=== PATIENT | male | born 1970 | race Caucasian/White ===

== ENCOUNTER 2017-04-30 13:27 | Inpatient (IN) | payer OTHER ==
[~2017-04-30] VITALS: Ht 167.6 cm; Wt 56.7 kg
[2017-04-30] MEDS ORDERED: ACETAMINOPHEN 325 MG TABLET/CAPLET (TYLENOL) PO PRN (14:15)
[2017-04-30] MEDS ORDERED: LORazepam 0.5 MG (ATIVAN) TABLET PO PRN (14:15)
--- NOTE | 2017-04-30 15:21 | Physical Therapy Evaluation ---
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 Pain Numeric Pain Scale: 0-No Pain Location: No Pain Reported Objective Patient Orientation: Normal For Age Problem Solving: Good ROM/Strength ROM Lower Extremities bilateral LE WNL Strenght Lower Extremities right knee flexion/extension 5/5; hip flexion 5/5; ankle DF/PF 5/5 left knee flexion/extension 2/5; hip flexion 2/5; ankle DF/PF 1/5 Integumentary/Posture Integumentary refer to nursing notes Bowel Incontinence: No Bladder Incontinence: No Posture WNL; left lean Neuromuscular (Tone, Coordination, Reflexes) left UE/LE diminished tone and coordination right LE WFL/grossly intact Sensory Vision: Functional Hearing: Functional Sensation Right Lower Extremit: Intact Sensation Left Lower Extremity: Intact Transfers Functional [place] Measure 0=Not Assessed/NA 4=Minimal Assistance 1=Total Assistance 5=Supervision or Setup 2=Maximal Assistance 6=Modified [place] 3=Moderate Assistance 7=Complete IndependenceIRFPAI Quality Coding Scale 6 Independent with activity with or without an assistive device 5 Patient requires set up or clean up by helper. Patient completes activity by themselves 4 Supervision or touching assist (CGA). [place] provide cues , steadying assist 3 The helper provides less than half the effort to complete the activity 2 The helper provides more than half the effort to complete the activity 1 Dependent. The helper does all the effort to complete an activity 7 Patient refused to complete or attempt activity 9 The patient did not perform the activity before the current illness or injury 88 Not attempted due to Medical conditions or safety concerns Transfers (B, C, W/C) (FIM): 4 Scootin Rollin Roll Left to Right (QC): 6 Supine to/from Sit: 5 Sit to/from Stand: 4 Sit to Lying (QC): 5 Lying to Sitting/Side of Bed(Q: 5 Sit to Stand (QC): 4 Chair/Bwq-ws-Vvspq Xfer(QC): 4 Gait Does the Patient Walk?: Yes Mode of Locomotion: Walk Anticipated Mode of Locomotion: Walk Gait (FIM): 4 Distance (FIM): 1=up to 49 ft Walk 10 feet (QC): 4 Walk 50 ft with 2 Turns(QC): 4 Walking 10ft/uneven surface-QC: 4 Distance: 25' x 2 Gait Level of Assist: 4 Gait Persons Needed: 1 Gait Assistive Device: Walker Nav Comments/Gait Description step to gait sequence with left LE lag Stairs Stairs (FIM): 2 #of Steps: 2 Level of Assist: 4 1 Step (curb) (QC): 4 4 Steps (QC): 88 12 Steps (QC): 88 Balance Sitting Static: Normal Sitting Dynamic: Normal Standing Static: Fair Standing Dynamic: Fair Assessment/Needs 46 y.o. male, will benefit from skilled PT to address functional strength and mobility to improve current LOF and to safely return to home at maximum LOF. Patient is limited due to left hemiparesis. Rehab Potential: Good PT Block Chopper Hand Goals Block Chopper Hand Goals PT Block Chopper Hand Goals Time Frame: May 21, 2017 Transfers (B,C,W/C) (FIM): 6 Sit to Lying (QC): 6 Lying-Sitting on Side/Bed(QC): 6 Sit to Stand (QC): 6 Rollin Roll Left to Right (QC): 6 Chair/Rti-uj-Dtazp Xfer(QC): 6 Car Transfer (QC): 6 Does the Patient Walk: Yes Gait (FIM): 6 Gait distance (FIM): 3=150 ft Distance: 250' Walk 10 feet (QC): 6 Walk 10ft-Uneven Surface(QC): 6 Walk 50ft with 2 Turns (QC): 6 Walk 150 ft (QC): 6 Gait Level of Assist: 6 Gait Assistive Device: Cane Single Point, Walker Nav Does the Pt use WC or Scooter?: No Stairs (FIM): 5 # of Steps: 12 1 Step (curb) (QC): 5 4 Steps (QC): 5 12 Steps (QC): 5 Stairs Level Of Assist: 5 Picking up an Object (QC): 5 PT Plan Problem List Problem List: Functional Strength, Safety, Balance, Gait Treatment/Plan Treatment Plan: Continue Plan of Care Treatment Plan: Bed Mobility, Education, Functional Activity Av, Functional Strength, Group Therapy, Gait, Safety, Therapeutic Exercise, Transfers Treatment Duration: May 21, 2017 Frequency: At least 5 of 7 days/Wk (IRF) Estimated Hrs Per Day: 1.5 hours per day Patient and/or Family Agrees t: Yes Safety Risks/Education Patient Education: Gait Training, Safety Issues Teaching Recipient: Patient, Significant Other Teaching Methods: Demonstration, Discussion Response to Teaching: Verbalize Understanding, Return Demonstration Discharge Recommendations Therapy D/C Recommendations: Home w/ Family Support, Physical Therapy Outpatient Time/GCodes Time In: 1526 Time Out: 1546 Total Billed Treatment Time: 20 Total Billed Treatment 1 visit EVModC 20 min NICOLA CHOI PT Apr 30, 2017 15:21
[2017-04-30 15:30] VITALS: BP 112/75
--- NOTE | 2017-04-30 15:40 | PM&R Post Admission Assessment ---
Post Admission Physician Asses The preadmission screen agrees with the post admission assessment that the patient is a good candidate for inpatient rehabilitation. The patient will have a comprehensive program of inpatient rehabilitation with a goal of maximizing level of functional independence prior to discharge home with spouse. The patient will have PT/OT ninety minutes per day, each discipline, five days a week for gait, strengthening, conditioning, balance, ADLs, any patient/family/caregiver training as necessary. Speech therapy to do cognitive assessment and treat as indicated. Rehabilitation nursing to assist with bowel, bladder, skin,care medication administration, pain management. Audit Analyst to assist with discharge planning, community reentry. SCD's for DVT prophylaxis. He appears to be well motivated to participate in three hours of therapy a day. He should be able to tolerate three hours of therapy a day from a medical standpoint. He should benefit from the three hours of therapy a day. He has a reasonable discharge plan, reasonable discharge rehabilitation goals and a supportive family. He has various comorbidities that need to be closely monitored with medications and treatments adjusted on a daily basis as needed. These include: ETOH abuse Hypothyroidism [place] Barriers to discharge for this patient who had been independent prior to this are for him to be modified independent to supervision for ADLs and mobility skills prior to discharge home with spouse, so as to lessen the burden of the caregivers. Risks for this patient include: 1. Fall 2. Fracture 3. DVT 4. Pulmonary embolism 5. ETOH withdrawal 6. Skin breakdown 7. Contractures 8. Poorly controlled pain 9. Urinary retention 10. UTI 11. Respiratory infection 12. Aspiration 13 Anxiety /depression related to above Estimated Length of Stay: 17 days Prognosis: Rehab prognosis appears good for goal of discharge home with spouse modified independent to supervision for ADLs and mobility skills. DESMOND FAM MD Apr 30, 2017 15:40
--- NOTE | 2017-04-30 15:41 | Occupational Therapy Eval ---
OT Evaluation-General/PLF Medical Diagnosis Admission Date April 30, 2017 Medical Diagnosis: CVA Onset Date: Apr 24, 2017 Therapy Diagnosis Therapy Diagnosis: Impaired self care skills Precautions Precautions/Isolations: Fall Prevention, Standard Precautions, Pressure Ulcer Referral Physician: Jose Antonio Medical History Additional Medical History Neck cancer, left hand surgery, alcoholism Current History CVA with left side weakness Reviewed History: Yes Social History Home: Multilevel (stay on main level) Current Living Status: Spouse Entry Into Home: Stairs With Railing Steps Into Home: 4 ADL-Prior Level of Function ADL PLOF Comments Pt reports being independent with all ADLs and mobility. 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 Pt has no c/o pain. Mental Status/Objective Patient Orientation: Person, Place, Situation Current Glasses/Contacts: No Hearing Aids: No Dentures/Partials: No Hand Dominance: Right Upper Extremity ROM Right UE WFL Left UE- active shoulder ROM to 90 degrees. decreased internal/external rotation. Elbow, wrist, and hand grossly functional Upper Extremity Coordination Right UE WFL Left UE diminished Upper Extremity Sensation Pt reports numbness in left UE, worst in hand. Intact to light touch Upper Extremity Strength Right UE WFL Left UE proximally grossly 2+/5, distally grossly 3/5 ADL-Treatment ADL-Current Pt supine to sit with supervision. Pt demonstrates ability to doff/don socks with SBA while seated EOB. Sit to stand with minimal assistance. Gait to restroom with ellie-walker with minimal assistance for balance. Pt stood at toilet to urinate with minimal assistance for balance and safety. Pt requires cues for safety during mobility tasks. Pt sitting EOB with PT and spouse present after session. Functional [place] Measure 0=Not Assessed/NA 4=Minimal Assistance 1=Total Assistance 5=Supervision or Setup 2=Maximal Assistance 6=Modified [place] 3=Moderate Assistance 7=Complete IndependenceIRFPAI Quality Coding Scale 6 Independent with activity with or without an assistive device 5 Patient requires set up or clean up by helper. Patient completes activity by themselves 4 Supervision or touching assist (CGA). [place] provide cues , steadying assist 3 The helper provides less than half the effort to complete the activity 2 The helper provides more than half the effort to complete the activity 1 Dependent. The helper does all the effort to complete an activity 7 Patient refused to complete or attempt activity 9 The patient did not perform the activity before the current illness or injury 88 Not attempted due to Medical conditions or safety concerns On/Off Footwear (QC): 4 (supervision) Toileting (FIM): 4 Toileting Hygiene (QC): 3 Education OT Patient Education: Rehab process Teaching Recipient: Patient, Family Teaching Methods: Discussion Response to Teaching: Verbalize Understanding OT Short Term Goals Short Term Goals Time Frame: May 07, 2017 Lower Body Dressing(FIM): 5 Toileting(FIM): 5 Toilet/Commode Transfer(FIM): 5 Additional Short Term Goals: 1-Demonstrate ADL Tasks, 2-Verbalize Understanding , 3-ImproveStrength/Av 1=Demonstrate adherence to instructed precautions during ADL tasks. 2=Patient will verbalize/demonstrate understanding of assistive devices/ modifications for ADL. 3=Patient will improve strength/tolerance for activity to enable patient to perform ADL's. OT Nursing Home Goals It Support Specialist Goals Time Frame: May 21, 2017 Eating (FIM): 6 Eating (QC): 6 Groomin Oral Hygiene (QC): 6 Bathing(FIM): 5 Shower/Bathe Self (QC): 5 Upper Body Dressing(FIM): 6 Upper Body Dressing (QC): 6 Lower Body Dressing(FIM): 6 Lower Body Dressing (QC): 6 On/Off Footwear (QC): 6 Toileting(FIM): 6 Toileting Hygiene (QC): 6 Toilet/Commode Transfer(FIM): 6 Toilet/Commode Transfer (QC): 6 Shower Transfer(FIM): 5 Additional Goals: 1-Demonstrate ADL Tasks, 2-Verbalize Understanding, 3- ImproveStrength/Av 1=Demonstrate adherence to instructed precautions during ADL tasks. 2=Patient will verbalize/demonstrate understanding of assistive devices/ modifications for ADL. 3=Patient will improve strength/tolerance for activity to enable patient to perform ADL's. Goals established to promote increased independence and safety and allow safe discharge home with spouse. OT Education/Plan Problem List/Assessment Assessment: Decreased Safety Aware, Decreased UE Strength, Dependent Transfers , Impaired Coordination, Impaired Funct Balance, Impaired I ADL's, Impaired Self -Care Skills Pt admitted to ARU following acute hospitalization for CVA. Pt demonstrates decreased strength and coordination on left side and decreased ADL functioning, and mobility. Pt to benefit from skilled OT intervention for ADL training, transfers, strengthening, coordination, and home safety education to maximize level of independence and allow safe discharge home. Discharge Recommendations Plan/Recommendations: Continue POC Treatment Plan/Plan of Care Treatment,Training & Education: Yes Patient would benefit from OT for education, treatment and training to promote independence in ADL's, mobility, safety and/or upper extremity function for ADL' s. Plan of Care: ADL Retraining, Functional Mobility, Group Exercise/Act as Ind, UE Funct Exercise/Act, UE Neuromus Re-Ed/Coord Treatment Duration: May 21, 2017 Frequency: At least 5 of 7 days/Wk (IRF) Estimated Hrs Per Day: 1.5 hours per day Agreement: Yes Rehab Potential: Good Time/GCodes Start Time: 15:10 Stop Time: 15:25 Total Time Billed (hr/min): 15 Billed Treatment Time 1 visit, EVM(15minutes) MAYRA CRUZ OT Apr 30, 2017 15:41
[2017-04-30 17:00] VITALS: BP 112/75
[2017-04-30] MEDS: CARVEDILOL 3.125 MG (COREG) TABLET PO SCH (20:23)
[2017-04-30] MEDS: ATORVASTATIN 40 MG (LIPITOR) TABLET PO SCH (20:23)
--- NOTE | 2017-05-01 01:43 | HISTORY AND PHYSICAL ---
DATE OF SERVICE: CHIEF COMPLAINT: Difficulty with walking. HISTORY OF PRESENT ILLNESS: The patient is a 46-year-old male who is admitted to OSH with complaints of left-sided weakness and incontinence of urine. His brought him to ED. CT scan revealed infarct involving the right middle cerebral artery distribution and right basal ganglia with resulting left hemiparesis. The patient was placed on Lipitor. The patient was also started on levothyroxine for hypothyroidism and Ativan p.r.n. as he has a history of ethanol abuse and tobaccoism. Therapies were begun for the patient. The patient was found to be appropriate for inpatient rehabilitation unit and he was referred to inpatient rehabilitation unit at [facility] with his insurance is approval. He lives with his in the [place], [place] and has worked as a [employer] and had been independent. Currently, he requires assistance for his ADLs and mobility skills, has significant left hemiparesis. He is right hand dominant. He is min assist for transfers, min assist for ambulation with a ellie walker, min assist with bed mobility. He is set up for feeding, min assist for grooming, mod assist for upper body dressing and lower body dressing and toileting and bathing. He is reported to be continent of bowel and bladder. PAST MEDICAL HISTORY: Tobaccoism, ethanol abuse. PAST SURGICAL HISTORY: Left hand surgery, lymph node resection from his throat with history of neck cancer treated with radiation therapy and chemotherapy at [facility]. ALLERGIES: No known medication allergy. FAMILY HISTORY: Heart disease, uncle and grandfather. SOCIAL HISTORY: Drinks three alcoholic beverages daily, smoked 20 cigarettes a day. Denies any substance abuse. REVIEW OF SYSTEMS: A 12-point review of systems significant for left-sided weakness. MEDICATIONS: Tylenol 325 mg 2 tablets p.o. q. 4 h. as needed for pain, Lortab 325/5 one tablet p.o. q. 6 h. as needed for moderate pain, Lipitor 40 mg p.o. daily, Coreg 3.25 mg p.o. b.i.d., Flexeril 10 mg one-half tablet p.o. t.i.d. p.r.n. muscle spasm, furosemide 20 mg p.o. daily, levothyroxine 100 mcg p.o. daily, lorazepam 0.5 mg p.o. q. 6 h. as needed for anxiety. PHYSICAL EXAMINATION: GENERAL: Significant for a male appearing in his stated age, alert and oriented, sitting on the side of the bed in no acute distress. VITAL SIGNS: Within normal limits. He is afebrile. HEENT: Vision, speech, hearing appear grossly intact. No oral lesion is noted. NECK: Supple without mass. HEART: Regular rhythm. LUNGS: Clear. ABDOMEN: Soft, nontender. EXTREMITIES: No leg edema, no calf tenderness. MUSCULOSKELETAL: He has functional passive range of motion of all 4 extremities. NEUROLOGIC: Cognition appears grossly intact. Speech and swallow grossly intact. Sensation grossly intact to touch. He has left-sided weakness with strength of left lower extremity 2/5 other than ankle which is 1/5, strength in the right lower extremity 5/5, strength of right upper limb 5/5. 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 Strength generally 2 to 2+/5. Has diminished tone and coordination on the left. IMPRESSION: 1. Right middle cerebral artery distribution ischemic stroke with left hemiparesis, now on statin. 2. Hypothyroidism, on replacement. 3. Tobaccoism, currently abstaining. 4. Ethanol abuse, currently abstaining. 4. Reactive anxiety, on medication p.r.n. PLAN: The patient will have a comprehensive program of inpatient stroke rehabilitation with goal of maximizing level of functional independence prior to discharge home with spouse. The patient will have PT, OT 90 minutes per day each discipline, 5 days a week for 2 weeks for gait strengthening and conditioning, balance, ADLs, any patient family caregiver training necessary adaptive equipment and training necessary. Speech therapy to do cognitive speech screen. Treat as indicated. Rehabilitation nursing to assist with bowel, bladder skin care, medication administration, pain management. surgical services asst for discharge planning, community reentry. Ask Dr. Culver to follow this [facility] patient with me for any medical concerns. We will clarify the patient's need for the Coreg and pain medication p.r.n. after further review of records and patient's interview. Routine admission labs. ESTIMATED LENGTH OF STAY: 2 weeks. PROGNOSIS: Rehab prognosis appears good for goal of discharging home with spouse, modified independent to supervision for ADLs and mobility skills. The patient's spouse presents with the patient upon admission. DIET: Heart healthy, regular consistency, solids and liquids, no straws. CODE STATUS: Full code. Job ID: [id number] DocumentID: [id number] Dictated Date: 04/30/2017 15:49:56 Power Distribution Engineer Date: 04/30/2017 17:16:31 Dictated By: DESMOND FAM MD [facility]PITALCristobal
[2017-05-01 06:00] VITALS: BP 118/80
[2017-05-01] MEDS: HYDROcodone/APAP 5 MG/325 MG (LORTAB) TAB PO PRN ×3 (06:15→20:37)
[2017-05-01] MEDS: LEVOTHYROXINE 100 MCG (LEVOTHROID) TAB PO SCH (06:15)
[2017-05-01 06:19] LABS: BASOPHILS % (AUTO) 0 % (0-10); EOSINOPHILS # (AUTO) 0.2 10^3/uL (0.0-0.3); EOSINOPHILS % (AUTO) 2 % (0-10); LYMPHOCYTES # (AUTO) 1.2 X 10^3 (1.0-4.0); LYMPHOCYTES % (AUTO) 13 % (12-44); MEAN CORPUSCULAR HEMOGLOBIN 32 PG (25-34); MEAN CORPUSCULAR HGB CONC 35 G/DL (32-36); MEAN CORPUSCULAR VOLUME 90 FL (80-99); MEAN PLATELET VOLUME 10.9 FL (7.4-10.4); MONOCYTES % (AUTO) 10 % (0-12); NEUTROPHILS # (AUTO) 7.2 X 10^3 (1.8-7.8); NEUTROPHILS % (AUTO) 75 % (42-75); PLATELET COUNT 252 10^3/uL (130-400); RED BLOOD COUNT 4.99 10^6/uL (4.35-5.85); RED CELL DISTRIBUTION WIDTH 12.4 % (10.0-14.5); WHITE BLOOD COUNT 9.6 10^3/uL (4.3-11.0)
[2017-05-01 06:52] LABS: ALANINE AMINOTRANSFERASE 37 U/L (0-55); ALBUMIN 3.6 GM/DL (3.2-4.5); ANION GAP 10 MMOL/L (5-14); ASPARTATE AMINO TRANSFERASE 28 U/L (5-34); BILIRUBIN,TOTAL 0.8 MG/DL (0.1-1.0); BLOOD UREA NITROGEN 14 MG/DL (7-18); BUN/CREATININE RATIO 17; CALCIUM 8.9 MG/DL (8.5-10.1); CARBON DIOXIDE 23 MMOL/L (21-32); CHLORIDE 103 MMOL/L (98-107); CREATININE SERUM 0.83 MG/DL (0.60-1.30); GFR ESTIMATED > 60; GLUCOSE 99 MG/DL (70-105); POTASSIUM 4.2 MMOL/L (3.6-5.0); SODIUM 136 MMOL/L (135-145); TOTAL PROTEIN 6.3 GM/DL (6.4-8.2)
[2017-05-01] MEDS: FUROSEMIDE 20 MG (LASIX) TAB PO SCH (09:32)
[2017-05-01] MEDS: CARVEDILOL 3.125 MG (COREG) TABLET PO SCH ×2 (09:32→20:37)
--- NOTE | 2017-05-01 09:53 | Physical Therapy Daily Note ---
PT Daily Note-Current Subjective Patient just complete breakfast and agrees to PT. Pain Numeric Pain Scale: 0-No Pain Location: No Pain Reported Mental Status Patient Orientation: Normal For Age Transfers Functional [place] Measure 0=Not Assessed/NA 4=Minimal Assistance 1=Total Assistance 5=Supervision or Setup 2=Maximal Assistance 6=Modified [place] 3=Moderate Assistance 7=Complete IndependenceIRFPAI Quality Coding Scale 6 Independent with activity with or without an assistive device 5 Patient requires set up or clean up by helper. Patient completes activity by themselves 4 Supervision or touching assist (CGA). [place] provide cues , steadying assist 3 The helper provides less than half the effort to complete the activity 2 The helper provides more than half the effort to complete the activity 1 Dependent. The helper does all the effort to complete an activity 7 Patient refused to complete or attempt activity 9 The patient did not perform the activity before the current illness or injury 88 Not attempted due to Medical conditions or safety concerns Transfers (B, C, W/C) (FIM): 4 Scootin Rollin Roll Left to Right (QC): 5 Supine to/from Sit: 5 Sit to/from Stand: 4 Sit to Lying (QC): 5 Sit to Stand (QC): 4 Chair/Hin-pi-Virdq Xfer(QC): 4 Bed to/from Chair: 4 Car Transfer (QC): 5 close CGA to SBA with sit to stand transfers and pivot turns Weight Bearing Right Lower Extremity: Right Full Weight Bearing Left Lower Extremity: Left Full Weight Bearing Gait Training Does the Patient Walk?: Yes Gait (FIM): 4 Distance (FIM): 3=150 ft Distance: 150' x 2 Walk 10 feet (QC): 4 Walk 50 ft with 2 Turns(QC): 4 Walk 150 ft (QC): 4 Walking 10ft/uneven surface-QC: 4 Gait Level of Assist: 4 Gait Persons Needed: 1 Gait Assistive Device: Walker Nav cuing for left LE foot clearance due to left LE lag. Exercises Supine Ex: Ankle pumps, Quad Set, Heel Slides, Short Arc Quads, Straight leg raise, Hip abd/add Supine Reps: 20 (x 2 sets with 2# wt. bilaterally) Seated Therapy Exercises: Long arc quads, Hip flexion Seated Reps: 20 (x 2 sets with 2# wt. bilaterally) Standing: Hip Abduction, Hamstring curls, Mini squats Standing Reps: 20 (2 sets with 2# wt bilaterally) NuStep Minutes: 15 NuStep Workload: 4 (to improve reciprocal pattern with gait training and to improve functional strength) Assessment Patient is progressing with treatment plan. Patient has been instructed to call for assistance due to impulsive behavior with transfers and ambulation. Patient voices understanding. PT to increase activity as tolerated by patient. PT Pediatrician Goals Pediatrician Goals PT Fdc Goals Time Frame: May 21, 2017 Transfers (B,C,W/C) (FIM): 6 Sit to Lying (QC): 6 Lying-Sitting on Side/Bed(QC): 6 Sit to Stand (QC): 6 Rollin Roll Left to Right (QC): 6 Chair/Orv-aw-Mmarh Xfer(QC): 6 Car Transfer (QC): 6 Does the Patient Walk: Yes Gait (FIM): 6 Gait distance (FIM): 3=150 ft Distance: 250' Walk 10 feet (QC): 6 Walk 10ft-Uneven Surface(QC): 6 Walk 50ft with 2 Turns (QC): 6 Walk 150 ft (QC): 6 Gait Level of Assist: 6 Gait Assistive Device: Cane Single Point, Walker Nav Does the Pt use WC or Scooter?: No Stairs (FIM): 5 # of Steps: 12 1 Step (curb) (QC): 5 4 Steps (QC): 5 12 Steps (QC): 5 Stairs Level Of Assist: 5 Picking up an Object (QC): 5 PT Plan Treatment/Plan Treatment Plan: Continue Plan of Care Treatment Plan: Bed Mobility, Education, Functional Activity Av, Functional Strength, Group Therapy, Gait, Safety, Therapeutic Exercise, Transfers Treatment Duration: May 21, 2017 Frequency: At least 5 of 7 days/Wk (IRF) Estimated Hrs Per Day: 1.5 hours per day Patient and/or Family Agrees t: Yes Safety Risks/Education Patient Education: Safety Issues Teaching Recipient: Patient Teaching Methods: Discussion Response to Teaching: Verbalize Understanding Discharge Recommendations Therapy D/C Recommendations: Home w/ Family Support, Physical Therapy Outpatient Time/GCodes Time In: 845 Time Out: 945 Total Billed Treatment Time: 60 Total Billed Treatment 1 visit EX x 3 50 min GT 10 min NICOLA CHOI PT May 01, 2017 09:53
--- NOTE | 2017-05-01 10:49 | Occupational Ther Daily Note ---
OT Current Status-Daily Note Subjective Pt seen in room, up in bed, agreeable to OT. No pain reported. Appearance Alert, cooperative, L sided neglect Mental Status/Objective Functional [place] Measure 0=Not Assessed/NA 4=Minimal Assistance 1=Total Assistance 5=Supervision or Setup 2=Maximal Assistance 6=Modified [place] 3=Moderate Assistance 7=Complete [place] ADL-Treatment Functional [place] Measure 0=Not Assessed/NA 4=Minimal Assistance 1=Total Assistance 5=Supervision or Setup 2=Maximal Assistance 6=Modified [place] 3=Moderate Assistance 7=Complete IndependenceIRFPAI Quality Coding Scale 6 Independent with activity with or without an assistive device 5 Patient requires set up or clean up by helper. Patient completes activity by themselves 4 Supervision or touching assist (CGA). [place] provide cues , steadying assist 3 The helper provides less than half the effort to complete the activity 2 The helper provides more than half the effort to complete the activity 1 Dependent. The helper does all the effort to complete an activity 7 Patient refused to complete or attempt activity 9 The patient did not perform the activity before the current illness or injury 88 Not attempted due to Medical conditions or safety concerns Eating (FIM): 5 (Per pt report. he was able to feed himself with his R hand but needed help to open packages and set up food. Pt shared his swallowing strategies) Eating (QC): 5 Grooming (FIM): 5 (Setup and supervision, seated at sink, to brush teeth and comb hair. Washed face and hands in shower. chooses not to shave today) Oral Hygiene (QC): 4 (supervision) Bathing (FIM): 4 (CGA when standing to wash bottom. Skilled cues and education to use L arm to wash and dry R arm. Skilled cues to place L hand on grab bar to use as support when standing. Washed and dried all parts with cues, education. Shower bench, grab bar, hand held shower) Shower/Bathe Self (QC): 4 Upper Body (FIM): 4 (min assist to don shirt, helping with L arm. Pt educ modified technique. Skilled cues when taking shirt off to take L arm out of sleeve due to neglect) Upper Body Dressing (QC): 3 Lower Body Dressing (FIM): 4 (CGA when standing to pull pants up. Skilled cues to pull pants up over L hip. Able to doff and don slipper socks with supervision. ) Lower Body Dressing (QC): 4 (CGA) On/Off Footwear (QC): 4 (supervision) Toileting (FIM): 4 (CGA for clothing management. Tall toilet, grab bar. Encouraged to use L hand on grab bar as assist for balance) Toileting Hygiene (QC): 4 Toilet/Commode Transfer (FIM): 4 (CGA on and off tall toilet, grab bar. Encouraged to use L arm as assist on grab bar) Shower Transfer(FIM): 4 (CGA getting on/off shower bench. grab bar) Pt educ modified techniques for ADLs. Pt educ on techniques to use to help increase functional use L UE, with focus on visual attention. Pt walked CGA, ellie walker to and from bathroom and did grooming in sitting. Skilled cues for sequencing to safely get to bathroom and back. pt left up in bed, 4 rails up, all needs met. Education OT Patient Education: Modified ADL techniques, Progress toward Goal/Update tx plan, Purpose of tx/functional activities, Rehab process, Safety issues, Transfer techniques Teaching Recipient: Patient Teaching Methods: Demonstration, Discussion Response to Teaching: Verbalize Understanding, Return Demonstration, Reinforcement Needed OT Short Term Goals Short Term Goals Time Frame: May 07, 2017 Lower Body Dressing(FIM): 5 Toileting(FIM): 5 Toilet/Commode Transfer(FIM): 5 Additional Short Term Goals: 1-Demonstrate ADL Tasks, 2-Verbalize Understanding , 3-ImproveStrength/Av 1=Demonstrate adherence to instructed precautions during ADL tasks. 2=Patient will verbalize/demonstrate understanding of assistive devices/ modifications for ADL. 3=Patient will improve strength/tolerance for activity to enable patient to perform ADL's. OT Supervisor Front Goals Supervisor Front Goals Time Frame: May 21, 2017 Eating (FIM): 6 Eating (QC): 6 Groomin Oral Hygiene (QC): 6 Bathing(FIM): 5 Shower/Bathe Self (QC): 5 Upper Body Dressing(FIM): 6 Upper Body Dressing (QC): 6 Lower Body Dressing(FIM): 6 Lower Body Dressing (QC): 6 On/Off Footwear (QC): 6 Toileting(FIM): 6 Toileting Hygiene (QC): 6 Toilet/Commode Transfer(FIM): 6 Toilet/Commode Transfer (QC): 6 Shower Transfer(FIM): 5 Additional Goals: 1-Demonstrate ADL Tasks, 2-Verbalize Understanding, 3- ImproveStrength/Av 1=Demonstrate adherence to instructed precautions during ADL tasks. 2=Patient will verbalize/demonstrate understanding of assistive devices/ modifications for ADL. 3=Patient will improve strength/tolerance for activity to enable patient to perform ADL's. OT Education/Plan Problem List/Assessment Pt admitted to ARU following acute hospitalization for CVA. Pt demonstrates decreased strength and coordination on left side and decreased ADL functioning, and mobility. Pt to benefit from skilled OT intervention for ADL training, transfers, strengthening, coordination, and home safety education to maximize level of independence and allow safe discharge home. Discharge Recommendations Plan/Recommendations: Continue POC Treatment Plan/Plan of Care Patient would benefit from OT for education, treatment and training to promote independence in ADL's, mobility, safety and/or upper extremity function for ADL' s. Plan of Care: ADL Retraining, Functional Mobility, Group Exercise/Act as Ind, UE Funct Exercise/Act, UE Neuromus Re-Ed/Coord Treatment Duration: May 21, 2017 Frequency: At least 5 of 7 days/Wk (IRF) Estimated Hrs Per Day: 1.5 hours per day Agreement: Yes Rehab Potential: Good Time/GCodes Start Time: 10:00 Stop Time: 10:38 Total Time Billed (hr/min): 38 Billed Treatment Time visit, ADL 38 minutes STEPHIE DUMAS OT May 01, 2017 10:49
[2017-05-01 14:36] VITALS: BP 100/63
[2017-05-01 18:10] VITALS: BP 110/75
[2017-05-01] MEDS: ATORVASTATIN 40 MG (LIPITOR) TABLET PO SCH (20:37)
[2017-05-02] MEDS: CYCLOBENZAPRINE 10 MG (FLEXERIL) TAB PO PRN ×2 (00:38→15:27)
[2017-05-02] MEDS: HYDROcodone/APAP 5 MG/325 MG (LORTAB) TAB PO PRN ×3 (00:38→17:52)
[2017-05-02 00:41] VITALS: BP 110/74
[2017-05-02] MEDS: LEVOTHYROXINE 100 MCG (LEVOTHROID) TAB PO SCH (05:45)
[2017-05-02 05:49] VITALS: BP 109/71
[2017-05-02] MEDS: CARVEDILOL 3.125 MG (COREG) TABLET PO SCH ×2 (09:11→20:04)
[2017-05-02] MEDS: FUROSEMIDE 20 MG (LASIX) TAB PO SCH (09:11)
[2017-05-02 09:12] VITALS: BP 102/65
[2017-05-02] MEDS ORDERED: ATOR40TA70 PO (16:57)
[2017-05-02] MEDS ORDERED: FURO20TA4 PO (16:57)
[2017-05-02] MEDS ORDERED: ACET325T49 PO (16:57)
[2017-05-02] MEDS ORDERED: CYCL10TA9 PC (16:57)
[2017-05-02] MEDS ORDERED: LEVO100T7 PO (16:57)
[2017-05-02] MEDS ORDERED: LORA0.5T PO (16:57)
[2017-05-02] MEDS ORDERED: HYDR-757 PO (16:57)
[2017-05-02] MEDS ORDERED: CARV3.122 PO (16:57)
[2017-05-02] MEDS ORDERED: MILK OF MAGNESIA 400 MG/5 ML 30 ML UDC PO PRN (17:00)
[2017-05-02 17:55] VITALS: BP 104/69
[2017-05-02] MEDS ORDERED: KETOROLAC 30 MG/ML VIAL IM PRN (18:15)
--- NOTE | 2017-05-02 19:22 | Diagnostic Imaging Report ---
PROCEDURE: CT head without contrast. TECHNIQUE: Multiple contiguous axial images were obtained through the brain without the use of intravenous contrast. INDICATION: Hemorrhagic stroke 10 days earlier. Now with severe headache. FINDINGS: There is a 2.6 x 2.3 cm acute area of hemorrhage in the right basal ganglia with surrounding vasogenic edema. Mild localized mass effect with slight effacement of right lateral ventricle. Trace right to left midline shift at approximately 2 mm. Additional areas of acute hemorrhage not suggested. Left cerebral hemisphere and posterior fossa appearing unremarkable. Basilar cisterns maintained. IMPRESSION: 1. Acute approximately 2.6 x 2.3 cm hemorrhagic infarct of the right basal ganglia surrounding the vasogenic edema. Mild localized mass effect with minimal right to left midline shift. (I currently have no prior studies for direct comparative purposes. By report, this may be increased in size from prior MRI of 04/26/2017). Findings have been telephoned to the inpatient rehabilitation department, patient's unit nurse at 7:10 PM. Dictated by: Dictated on workstation # [id number]
[2017-05-02] MEDS ORDERED: CYCLOBENZAPRINE 10 MG (FLEXERIL) TAB PO ONE (19:45)
[2017-05-02] MEDS ORDERED: HYDROcodone/APAP 5 MG/325 MG (LORTAB) TAB PO ONE (19:45)
[2017-05-02 19:58] VITALS: BP 104/66
[2017-05-02] MEDS: ATORVASTATIN 40 MG (LIPITOR) TABLET PO SCH (20:03)
[2017-05-02] MEDS ORDERED: DEXAMETHASONE 1 MG TAB (DECADRON) PO SCH (22:00)
[2017-05-02 23:39] VITALS: BP 94/59
[2017-05-03 04:00] VITALS: BP 95/62
[2017-05-03] MEDS ORDERED: DEXAMETHASONE 4 MG TAB (DECADRON) ONE (05:22)
[2017-05-03] MEDS: LEVOTHYROXINE 100 MCG (LEVOTHROID) TAB PO SCH (05:46)
[2017-05-03] MEDS ORDERED: DEXAMETHASONE 4 MG TAB (DECADRON) PO SCH (06:00)
[2017-05-03 08:03] VITALS: BP 107/71
--- NOTE | 2017-05-03 08:30 | Consultation ---
History of Present Illness History of Present Illness Patient Consulted On(mina/time) 05/03/17 08:25 Time Seen by Provider: 08:25 History of Present Illness patient said he had a stroke on his left side. Patient said due to bleed. Patient also was told he had a myocardial infarction. Patient has a history of drinking 12 beers a day. Patient smokes and uses marijuana. Patient has weakness of his left extremities. 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 No primary site noted Allergies and Home Medications Allergies Coded Allergies: No Known Drug Allergies (Unverified , 04/30/17) Home Medications Acetaminophen 325 Mg Tablet, 650 MG PO Q4H PRN for PAIN-MILD, (Reported) TAKES 2 (325 MG) TABLETS Atorvastatin Calcium 40 Mg Tablet, 40 MG PO HS, (Reported) Carvedilol 3.125 Mg Tablet, 3.125 MG PO BID, (Reported) Cyclobenzaprine HCl 10 Mg Tablet, 5 MG PC TID PRN for MUSCLE SPASMS, (Reported) TAKES 1/2 OF A (10 MG) TABLET Furosemide 20 Mg Tablet, 20 MG PO DAILY, (Reported) Hydrocodone/Acetaminophen 1 Each Tablet, 1 TAB PO Q6H PRN for PAIN-MODERATE, ( Reported) Levothyroxine Sodium 100 Mcg Tablet, 100 MCG PO DAILY, (Reported) Lorazepam 0.5 Mg Tablet, 0.5 MG PO Q6H PRN for ANXIETY, (Reported) Past Nofkxkb-Piqufg-Rvvhdk Hx Patient Social History Alcohol Use: Regular Use Alcohol Beverage of Choice: Beer Recreational Drug Use: Yes Drug of Choice: marjuana Smoking Status: Former Smoker Type Used: Cigarettes Former Smoker, Quit: Mar 24, 2017 Recent Foreign Travel: No Contact w/Someone Who Travel: No Recent Infectious Disease Expo: No Recent Hopitalizations: Yes Seasonal Allergies Seasonal Allergies: No Surgeries History of Surgeries: Yes (hand) Respiratory History of Respiratory Disorde: Yes Respiratory Disorders: COPD Currently Using CPAP: No Currently Using BIPAP: No Cardiovascular History of Cardiac Disorders: Yes Neurological History of Neurological Disord: Yes Genitourinary History of Genitourinary Disor: No Gastrointestinal History of Gastrointestinal Di: No Musculoskeletal History of Musculoskeletal Dis: Yes (left hand surgery) Endocrine History of Endocrine Disorders: Yes HEENT History of HEENT Disorders: No Loss of Vision: Denies Hearing Impairment: Denies Cancer History of Cancer: Yes (neck ca-radiation and chemo) Did You Recieve Any Treatments: Yes Type of Tx Receive: Chemotherapy, Radiation Psychosocial History of Psychiatric Problem: Yes Behavioral Health Disorders: Anxiety Integumentary History of Skin or Integumenta: No Blood Transfusions History of Blood Disorders: No Adverse Reaction to a Blood Tr: No Family Medical History Family Medial History: Cardiovascular disease 19 FATHER (50) Review of Systems-General Constitutional: weakness EENTM: no symptoms reported Respiratory: no symptoms reported Cardiovascular: other (yocardial infarction) Gastrointestinal: no symptoms reported Genitourinary: no symptoms reported Physical Exam-General Problems Physical Exam Vital Signs Vital Sign - Last 12Hours 04/30/17 04/30/17 16:00 17:00 Temp 98.3 Pulse 66 Resp 20 B/P (MAP) 112/75 Pulse Ox 100 O2 Delivery Room Air Capillary Refill : General Appearance: no apparent distress, thin Eyes: Bilateral Eye Normal Inspection HEENT: normal ENT inspection Neck: non-tender Respiratory: chest non-tender, no respiratory distress, no accessory muscle use Cardiovascular: regular rate, rhythm Gastrointestinal: non tender, soft Assessment/Plan Assessment/Plan Admission Diagnosis/Plan CVA on left. Acute [place]. tobaccoism. Alcoholism. Clinical Quality Measures DVT/VTE Risk/Contraindication: Risk Factor Score Per Nursin RFS Level Per Nursing on Admit: 4+=Very High NELLY JONES DO May 03, 2017 08:30
[2017-05-03] MEDS: FUROSEMIDE 20 MG (LASIX) TAB PO SCH (09:19)
[2017-05-03] MEDS: CARVEDILOL 3.125 MG (COREG) TABLET PO SCH ×2 (09:19→20:58)
--- NOTE | 2017-05-03 09:26 | Physical Therapy Daily Note ---
PT Daily Note-Current Subjective Pt sitting on EOB upon arrival and agrees to tx. Pleasant and cooperative. Pain Numeric Pain Scale: 0-No Pain Appearance Patient BTB post tx with bed alarm on, has nurse call, phone, tray, all needs met. Mental Status Patient Orientation: Person, Place, Time, Situation Transfers Functional [place] Measure 0=Not Assessed/NA 4=Minimal Assistance 1=Total Assistance 5=Supervision or Setup 2=Maximal Assistance 6=Modified [place] 3=Moderate Assistance 7=Complete IndependenceIRFPAI Quality Coding Scale 6 Independent with activity with or without an assistive device 5 Patient requires set up or clean up by helper. Patient completes activity by themselves 4 Supervision or touching assist (CGA). [place] provide cues , steadying assist 3 The helper provides less than half the effort to complete the activity 2 The helper provides more than half the effort to complete the activity 1 Dependent. The helper does all the effort to complete an activity 7 Patient refused to complete or attempt activity 9 The patient did not perform the activity before the current illness or injury 88 Not attempted due to Medical conditions or safety concerns Scootin Rollin Supine to/from Sit: 4 Sit to/from Stand: 4 Sit to Lying (QC): 4 Sit to Stand (QC): 4 CGA/Cain, cues for safety and hand placement, has mild left neglect Weight Bearing Right Lower Extremity: Right Full Weight Bearing Left Lower Extremity: Left Full Weight Bearing Gait Training Does the Patient Walk?: Yes Gait (FIM): 4 Distance (FIM): 9=086-11 ft Distance: 150'x2 Walk 10 feet (QC): 4 Walk 50 ft with 2 Turns(QC): 4 Gait Level of Assist: 4 Gait Persons Needed: 1 Gait Assistive Device: Cane Small Base Quad Slight hyperextension of LLE, tends to lean to the left but not enough to lose his balance Wheelchair Training Does the Pt Use a Wheelchair?: No Exercises Supine Ex: Bridging, Ankle pumps, Heel Slides, Straight leg raise, Hip abd/add Supine Reps: 20 Standing: Hip Abduction, Heel/toe raises, Marching, Step-ups Standing Reps: 20 LAQ left side with 2# ankle weight for 5 min, manually resisted supine leg extension 3 sets of 10 NuStep Minutes: 15 NuStep Workload: 6 Treatments Pt ambulated to Therapy Gym using Nav Walker. Pt completed supine and seated EX on therapy mat. Pt then ambulated from mat to NuStep using Quad cane at Contact A. Pt used NuStep for 15 m at workload 6. Pt then ambulated to //bars and completed standing EX with few short seated rest breaks. Pt ambulated back to room to lay in bed, all needs met. Assessment Current Status: Fair Progress Pt stated no pain, but still having issues with L extremity weakness/paralysis. PT Fpc Goals [place] Floor Supervisor Goals PT Fpc Goals Time Frame: May 21, 2017 Transfers (B,C,W/C) (FIM): 6 Sit to Lying (QC): 6 Lying-Sitting on Side/Bed(QC): 6 Sit to Stand (QC): 6 Rollin Roll Left to Right (QC): 6 Chair/Wqy-kx-Fkrrl Xfer(QC): 6 Car Transfer (QC): 6 Does the Patient Walk: Yes Gait (FIM): 6 Gait distance (FIM): 3=150 ft Distance: 250' Walk 10 feet (QC): 6 Walk 10ft-Uneven Surface(QC): 6 Walk 50ft with 2 Turns (QC): 6 Walk 150 ft (QC): 6 Gait Level of Assist: 6 Gait Assistive Device: Cane Single Point, Walker Nav Does the Pt use WC or Scooter?: No Stairs (FIM): 5 # of Steps: 12 1 Step (curb) (QC): 5 4 Steps (QC): 5 12 Steps (QC): 5 Stairs Level Of Assist: 5 Picking up an Object (QC): 5 PT Plan Problem List Problem List: Activity Tolerance, Functional Strength, Safety, Balance, Gait, Transfer Treatment/Plan Treatment Plan: Continue Plan of Care Treatment Plan: Bed Mobility, Education, Functional Activity Av, Functional Strength, Group Therapy, Gait, Safety, Therapeutic Exercise, Transfers Treatment Duration: May 21, 2017 Frequency: At least 5 of 7 days/Wk (IRF) Estimated Hrs Per Day: 1.5 hours per day Patient and/or Family Agrees t: Yes Safety Risks/Education Patient Education: Gait Training, Transfer Techniques, Correct Positioning, Disease Process, Safety Issues Teaching Recipient: Patient Teaching Methods: Demonstration, Discussion Response to Teaching: Verbalize Understanding, Return Demonstration, Reinforcement Needed Time/GCodes Time In: 800 Time Out: 930 Total Billed Treatment Time: 90 Total Billed Treatment 1 visit 1, GTx2 (30m), EXx3 (45), FA (15m) G Codes Necessary: No VENUS PALMA PT May 03, 2017 09:25
[2017-05-03 10:58] LABS: ANION GAP 9 MMOL/L (5-14); BLOOD UREA NITROGEN 23 MG/DL (7-18); BUN/CREATININE RATIO 22; CALCIUM 9.9 MG/DL (8.5-10.1); CARBON DIOXIDE 25 MMOL/L (21-32); CHLORIDE 100 MMOL/L (98-107); CREATININE SERUM 1.06 MG/DL (0.60-1.30); GFR ESTIMATED > 60; GLUCOSE 159 MG/DL (70-105); POTASSIUM 4.4 MMOL/L (3.6-5.0); SODIUM 134 MMOL/L (135-145)
--- NOTE | 2017-05-03 11:38 | Occupational Ther Daily Note ---
OT Current Status-Daily Note Subjective Pt supine in bed at beginning of tx. Agrees to therapy. No mention of pain. Appearance Alert, cooperative, left side neglect. Mental Status/Objective Functional [place] Measure 0=Not Assessed/NA 4=Minimal Assistance 1=Total Assistance 5=Supervision or Setup 2=Maximal Assistance 6=Modified [place] 3=Moderate Assistance 7=Complete [place] ADL-Treatment Pt stated he had showered and changed yesterday with 's assistance and didn' t want to do either today. Pt toileted and brushed teeth, then walked to the gym for therapy. Functional [place] Measure 0=Not Assessed/NA 4=Minimal Assistance 1=Total Assistance 5=Supervision or Setup 2=Maximal Assistance 6=Modified [place] 3=Moderate Assistance 7=Complete IndependenceIRFPAI Quality Coding Scale 6 Independent with activity with or without an assistive device 5 Patient requires set up or clean up by helper. Patient completes activity by themselves 4 Supervision or touching assist (CGA). [place] provide cues , steadying assist 3 The helper provides less than half the effort to complete the activity 2 The helper provides more than half the effort to complete the activity 1 Dependent. The helper does all the effort to complete an activity 7 Patient refused to complete or attempt activity 9 The patient did not perform the activity before the current illness or injury 88 Not attempted due to Medical conditions or safety concerns Grooming (FIM): 4 (Pt brushed teeth and washed hands while standing at sink with CGA for safety, with no LOB observed. Pt chose not to shave. ) Toileting (FIM): 4 (Pt toileted standing up with CGA for safety with no LOB observed. Pt able to complete all parts of toileting with no assistance. Grab bars, tall toilet) Other Treatment Pt walked to gym with small base quad cane and CGA for safety. Pt used arm bike for 8 minutes at 15 daniel with L hand held on handle with thom bandage. Pt also needed skilled facilitation to maintain proper alignment of arm and shoulder during exercise. Pt did table top exercises of reaching for and grabbing cones to increase coordination of LUE and grasp of L hand. Pt has movement in all ranges but moves mostly in middle ranges unless reminded to move in the full range. Pt movements in full range tend to be slow and must focus to complete range. Pt completed shoulder exercises of protraction, retraction, depression, elevation, and scapular rotation, shoulder flexion, elbow exercises of flexion and extension with and against gravity, forearm pronation/supination, wrist flexion/extension, and finger exercises. Pt has opposition and intrinsics. These were done in front of a mirror so that pt could effectively use visual feedback to guide movements and required the use of skilled facilitation to be completed properly and effectively. Pt walked back to room with small base quad cane and CGA for safety. Pt in bed with bed rails up and bed alarm set with all needs met. Education OT Patient Education: Correct positioning, Modified ADL techniques, Purpose of tx/functional activities, Other (education of facilitation techniques) Teaching Recipient: Patient Teaching Methods: Demonstration, Discussion Response to Teaching: Verbalize Understanding, Return Demonstration, Reinforcement Needed OT Short Term Goals Short Term Goals Time Frame: May 07, 2017 Lower Body Dressing(FIM): 5 Toileting(FIM): 5 Toilet/Commode Transfer(FIM): 5 Additional Short Term Goals: 1-Demonstrate ADL Tasks, 2-Verbalize Understanding , 3-ImproveStrength/Av 1=Demonstrate adherence to instructed precautions during ADL tasks. 2=Patient will verbalize/demonstrate understanding of assistive devices/ modifications for ADL. 3=Patient will improve strength/tolerance for activity to enable patient to perform ADL's. OT Correction Goals Correction Goals Time Frame: May 21, 2017 Eating (FIM): 6 Eating (QC): 6 Groomin Oral Hygiene (QC): 6 Bathing(FIM): 5 Shower/Bathe Self (QC): 5 Upper Body Dressing(FIM): 6 Upper Body Dressing (QC): 6 Lower Body Dressing(FIM): 6 Lower Body Dressing (QC): 6 On/Off Footwear (QC): 6 Toileting(FIM): 6 Toileting Hygiene (QC): 6 Toilet/Commode Transfer(FIM): 6 Toilet/Commode Transfer (QC): 6 Shower Transfer(FIM): 5 Additional Goals: 1-Demonstrate ADL Tasks, 2-Verbalize Understanding, 3- ImproveStrength/Av 1=Demonstrate adherence to instructed precautions during ADL tasks. 2=Patient will verbalize/demonstrate understanding of assistive devices/ modifications for ADL. 3=Patient will improve strength/tolerance for activity to enable patient to perform ADL's. OT Education/Plan Problem List/Assessment Pt admitted to ARU following acute hospitalization for CVA. Pt demonstrates decreased strength and coordination on left side and decreased ADL functioning, and mobility. Pt to benefit from skilled OT intervention for ADL training, transfers, strengthening, coordination, and home safety education to maximize level of independence and allow safe discharge home. Discharge Recommendations Plan/Recommendations: Continue POC Treatment Plan/Plan of Care Patient would benefit from OT for education, treatment and training to promote independence in ADL's, mobility, safety and/or upper extremity function for ADL' s. Plan of Care: ADL Retraining, Functional Mobility, Group Exercise/Act as Ind, UE Funct Exercise/Act, UE Neuromus Re-Ed/Coord Treatment Duration: May 21, 2017 Frequency: At least 5 of 7 days/Wk (IRF) Estimated Hrs Per Day: 1.5 hours per day Agreement: Yes Rehab Potential: Good Time/GCodes Start Time: 09:55 Stop Time: 11:27 Total Time Billed (hr/min): 92 Billed Treatment Time visit, ADL 10 minutes, neuromotor 82 minutes STEPHIE DUMAS OT May 03, 2017 11:38
--- NOTE | 2017-05-03 14:08 | PM & R (SOAP) Progress Note ---
Subjective Time Seen by Provider: 14:00 Subjective/Events-last exam Patient was seen in his room this afternoon Patient Min assist for transfers Patient had headache last evening CT done which revealed possible extension of stroke but neurologically unchanged Headaches have resolved at this TIME Discussed case with RN yesterday Appreciate DR James orders for steroid.Outside films from [facility] to be reviewed with in house films for comparison when available.Appreciate DR barton note. Objective Exam Last Set of Vital Signs Vital Signs Date Time Temp Pulse Resp B/P (MAP) Pulse Ox O2 Delivery O2 Flow Rate FiO2 05/03/17 08:03 99.3 61 18 107/71 96 Room Air Capillary Refill : I&O Intake and Output 05/04/17 00:00 Intake Total 200 ml Balance 200 ml Intake Oral 200 ml # Voids 2 General: Alert, Oriented X3, Cooperative, No Acute Distress HEENT: Atraumatic, PERRLA, EOMI, Mucous Memb Moist/[place] Neck: Supple, No JVD Lungs: Clear to Auscultation Heart: Regular Rate Abdomen: Normal Bowel Sounds, Soft, No Tenderness, No Masses Extremities: No Edema Neuro: Other (Mild left HP) Results Lab Laboratory Tests 05/01/17 06:09: White Blood Count 9.6, Red Blood Count 4.99, Hemoglobin 15.8, Hematocrit 45, Mean Corpuscular Volume 90, Mean Corpuscular Hemoglobin 32, Mean Corpuscular Hemoglobin Concent 35, Red Cell Distribution Width 12.4, Platelet Count 252, Mean Platelet Volume 10.9H, Neutrophils (%) (Auto) 75, Lymphocytes (%) (Auto) 13 , Monocytes (%) (Auto) 10, Eosinophils (%) (Auto) 2, Basophils (%) (Auto) 0, Neutrophils # (Auto) 7.2, Lymphocytes # (Auto) 1.2, Monocytes # (Auto) 1.0, Eosinophils # (Auto) 0.2, Basophils # (Auto) 0.0, Sodium Level 136, Potassium Level 4.2, Chloride Level 103, Carbon Dioxide Level 23, Anion Gap 10, Blood Urea Nitrogen 14, Creatinine 0.83, Estimat Glomerular Filtration Rate > 60, BUN/ Creatinine Ratio 17, Glucose Level 99, Calcium Level 8.9, Total Bilirubin 0.8, Aspartate Amino Transf (AST/SGOT) 28, Alanine Aminotransferase (ALT/SGPT) 37, Alkaline Phosphatase 59, Total Protein 6.3L, Albumin 3.6 05/03/17 10:28: Sodium Level 134L, Potassium Level 4.4, Chloride Level 100, Carbon Dioxide Level 25, Anion Gap 9, Blood Urea Nitrogen 23H, Creatinine 1.06, Estimat Glomerular Filtration Rate > 60, BUN/Creatinine Ratio 22, Glucose Level 159H, Calcium Level 9.9 Assessment/Plan Assessment Rt CVA with Left HP ETOH abuse currently abstaining Tobaccoism currently abstaining Headaches resolved at this time Anxiety improved with meds Steroid induced Hyperglycemia Plan Continue PT/OT/ST Team Conference 05-05-17 CT films to be compared from outside facility with ours when available. DESMOND FAM MD May 03, 2017 14:08
[2017-05-03] MEDS: DEXAMETHASONE 1 MG TAB (DECADRON) PO SCH ×2 (14:29→20:58)
--- NOTE | 2017-05-03 14:29 | ST Cognitive Linguistic Eval ---
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 Reviewed History: Yes Social History Home: Multilevel Current Living Status: Spouse Speech PLF-Current Status Prior Level of Function The patient reported independence with ADL's prior to admission. Subjective The patient was recently admitted to [facility] following a right MCA resulting in left hemiparesis. The patient greeted the clinician appropriately and was agreeable to participation in the cognitive evaluation. Language Eval: Auditory Comprehends Simple Yes/No Ques: Functional Indent/Objects Multiple [place]: Functional Ident/Pics in Multiple [place]: Functional Follows 1-Step Commands: Functional Follows Complex Directions: Functional Follows General Conversations: Functional Language Eval: Verbal Language Completes Spontaneous Greeting: Functional Produces Auto, Serial Info: Functional Imitates Simple Words/Phrases: Functional Word Finding: Mild Requests Basic Needs: Functional States Basic Personal Info: Functional Expresses Complex Ideas: Functional Cognitive Patient Orientation The patient is independently oriented to self, location, month, day of week, date, and year. Objective Cognitive Domain Attention: Mild Memory: WNL Problem Solving: Mild Objective Oral Motor/Speech Production The patient displays a minimal left facial droop involving the lips, as well as , reduced left labial sensation. The patient remains 100% intelligible in known and unknown contexts. Impression The patient displays mild dysarthria characterized by reduced left labial range of motion and sensation, as well as, left neglect. Communication/Social Cognition Comprehension: 5 Expression: 5 Social Interaction: 6 Problem Solvin Memory: 5 Speech Patient Assess Expression of Ideas/Wants: Expression (4) Understanding [place] Content: Understands (4) Brief Interview-Mental Status: Yes Repetition of Three Words: Three (3) Temporal Orientation: Year: Correct (3) Temporal Orientation: Month: Accurate within 5 days(2) Temporal Orientation: Day: Correct (1) Recall : Wear to say "Sock": Yes, no cue required (2) Recall : Color: Yes, no cue required (2) Recall : Bed: Yes, no cue required (2) Speech Short Term Goals Short Term Goals Short Term Goals 1. The patient will complete oral motor exercises to improve left labial range of motion and strength. 2. The patient will display 90% accuracy with functional safety problem solving. 3. The patient will attend to the left side of a structured task without verbal cues and tactile redirection with 80% accuracy. Time Frame-STG: Two Weeks Speech Mainframe Architect Goals Fdc Goals 1. The patient will demonstrate improved facial strength, as well as, improved attention for increased function and safety with ADL's and communication. Time Frame: Three Weeks Comprehension: 6 Expression: 6 Social Interaction: 6 Problem Solvin Memory: 6 Speech-Plan Treatment Plan Speech Therapy Treatment Plan: Continue Plan of Care Continue skilled speech pathology to target functional communication and safety problem solving. Treatment Duration: May 24, 2017 Frequency: Modified Program (IRF) Estimated Hrs Per Day: .5 hour per day Rehab Potential: Good Safety Risks/Education Teaching Recipient: Patient Teaching Methods: Discussion Response to Teaching: Verbalize Understanding Education Topics Provided: Results, Recommendations, Plan of Care Time Speech Therapy Time In: 14:00 Speech Therapy Time Out: 14:15 Total Billed Time: 15 Billed Treatment Time 1, SUNITA SANTANA May 03, 2017 14:29
[2017-05-03] MEDS ORDERED: SALIVA STIMULANT MOUTH SPRAY (BIOTENE) 1.5 OZ MM PRN (14:30)
[2017-05-03] MEDS: DEXAMETHASONE 4 MG TAB (DECADRON) PO SCH ×2 (14:30→20:58)
[2017-05-03 15:40] VITALS: BP 102/61
[2017-05-03 20:00] VITALS: BP 110/84
[2017-05-03] MEDS: CYCLOBENZAPRINE 10 MG (FLEXERIL) TAB PO PRN (20:24)
[2017-05-03] MEDS: ATORVASTATIN 40 MG (LIPITOR) TABLET PO SCH (20:59)
[2017-05-04 00:05] VITALS: BP 104/78
[2017-05-04 04:05] VITALS: BP 102/65
[2017-05-04] MEDS: DEXAMETHASONE 4 MG TAB (DECADRON) PO SCH ×2 (05:59→13:30)
[2017-05-04] MEDS: DEXAMETHASONE 1 MG TAB (DECADRON) PO SCH ×2 (05:59→13:30)
[2017-05-04] MEDS: LEVOTHYROXINE 100 MCG (LEVOTHROID) TAB PO SCH (05:59)
--- NOTE | 2017-05-04 08:30 | Progress Note (SOAP) ---
Subjective Time Seen by Provider: 08:25 Subjective/Events-last exam CVA. Patient doing better. Patient moving his hand better less and his left leg better area Left leg is stronger. Objective Exam Vital Signs Date Time Temp Pulse Resp B/P (MAP) Pulse Ox O2 Delivery O2 Flow Rate FiO2 05/04/17 04:05 97.8 65 18 102/65 97 Room Air 05/04/17 00:05 98.5 68 20 104/78 97 Room Air 05/03/17 20:00 99.2 88 20 110/84 96 Room Air 05/03/17 20:00 97 Room Air 05/03/17 15:40 98.5 77 18 102/61 94 Room Air Capillary Refill : General Appearance: No Apparent Distress, Thin HEENT: Normal ENT Inspection Neck: Full Range of Motion, Normal Inspection Respiratory: No Accessory Muscle Use, No Respiratory Distress Results Lab Laboratory Tests 05/03/17 10:28: Sodium Level 134L, Potassium Level 4.4, Chloride Level 100, Carbon Dioxide Level 25, Anion Gap 9, Blood Urea Nitrogen 23H, Creatinine 1.06, Estimat Glomerular Filtration Rate > 60, BUN/Creatinine Ratio 22, Glucose Level 159H, Calcium Level 9.9 Assessment/Plan Assessment/Plan Assess & Plan/Chief Complaint CVA on left. Acute ND. tobaccoism. Alcoholism. . 05/04/17. CVA on left. Acute ND history. Tobaccoism. Alcoholism. Patient moving his left extremities better. Clinical Quality Measures DVT/VTE Risk/Contraindication: Risk Factor Score Per Nursin RFS Level Per Nursing on Admit: 4+=Very High NELLY JONES DO May 04, 2017 08:30
[2017-05-04] MEDS: FUROSEMIDE 20 MG (LASIX) TAB PO SCH (09:27)
[2017-05-04] MEDS: CARVEDILOL 3.125 MG (COREG) TABLET PO SCH ×2 (09:27→19:54)
--- NOTE | 2017-05-04 09:59 | PM & R (SOAP) Progress Note ---
Subjective Time Seen by Provider: 09:50 Subjective/Events-last exam Patient was seen in [facility] this AM doing Upper limb coordination exercised with OT Headaches generally better but complianing of persistent hiccups Patient feels that Flexeril helps with that but is sedating Current meds reviewed.Overall doing better Review of Systems HEENT: Head Aches, Other (hiccups) Neurological: Weakness Objective Exam Last Set of Vital Signs Vital Signs Date Time Temp Pulse Resp B/P (MAP) Pulse Ox O2 Delivery O2 Flow Rate FiO2 05/04/17 04:05 97.8 65 18 102/65 97 Room Air Capillary Refill : I&O Intake and Output 05/05/17 00:00 Intake Total 500 ml Balance 500 ml Intake Oral 500 ml # Voids 2 General: Alert, Oriented X3, Cooperative, No Acute Distress HEENT: Atraumatic, PERRLA, EOMI, Mucous Memb Moist/[place] Neck: Supple, No JVD Lungs: Clear to Auscultation Heart: Regular Rate Abdomen: Normal Bowel Sounds, Soft, No Tenderness, No Masses Extremities: No Edema Neuro: Other (Mild left HP) Results Lab Laboratory Tests 05/03/17 10:28: Sodium Level 134L, Potassium Level 4.4, Chloride Level 100, Carbon Dioxide Level 25, Anion Gap 9, Blood Urea Nitrogen 23H, Creatinine 1.06, Estimat Glomerular Filtration Rate > 60, BUN/Creatinine Ratio 22, Glucose Level 159H, Calcium Level 9.9 Assessment/Plan Assessment Rt CVA with Left HP ETOH abuse currently abstaining Tobaccoism currently abstaining Headaches improving at this time Anxiety improved with meds Steroid induced Hyperglycemia Hiccups S/P WA on coreg Plan Continue PT/OT/ST Team Conference to be held tomorrow 05-05-17 CT films to be compared from outside facility with ours when available Follow-up re RX for hiccups. DESMOND FAM MD May 04, 2017 09:59
--- NOTE | 2017-05-04 10:06 | Individualized Plan of Care ---
Individualized Plan of Care Rehab Nursing IPOC Order Admission Date Apr 30, 2017 at 17:32 Current Orders Orders Admission-Acute Rehab Unit (04/30/17 13:53) Vital Signs: Routine 08,16,00 (04/30/17 13:53) Sequential Compression Device 08,20 (04/30/17 13:53) Social Media Senior Associate-Inpt Rehab (04/30/17 13:53) Rehab Nursing Orders-Ipoc (04/30/17 13:53) Physical Therapy Rehab Orders (04/30/17 13:53) Occupational Therapy Rehab Ord (04/30/17 13:53) Speech Therapy Rehab Orders (04/30/17 13:53) Heart Healthy (04/30/17 Dinner) Turn And Reposition Q2HR (04/30/17 13:53) Intake & Output 06,14,22 (04/30/17 13:53) Precautions (Aru) (04/30/17 13:53) Weekly Weight (Lbs) WEEK (04/30/17 13:53) Cbc With Automated Diff (05/01/17 06:00) Comprehensive Metabolic Panel (05/01/17 06:00) Consult Physician (04/30/17 13:59) Acetaminophen Tablet/Caplet (Tylenol T (04/30/17 14:15) Hydrocodone/Apap 5/325 Tablet (Lortab 5 (04/30/17 14:15) Atorvastatin Tablet (Lipitor) (04/30/17 21:00) Carvedilol Tablet (Coreg Tablet) (04/30/17 21:00) Cyclobenzaprine Tablet (Flexeril Tablet) (04/30/17 14:15) Furosemide Tablet (Lasix Tablet) (05/01/17 09:00) Levothyroxine Tablet (Synthroid Tablet) (05/01/17 06:30) Lorazepam Tablet (Ativan Tablet) (04/30/17 14:15) Ambulate TID (04/30/17 15:12) Sequential Compression Device ,20 (04/30/17 15:12) Dvt/Vte Risk - Notifiy Physici (04/30/17 15:12) Request Ot Evaluate & Treat (04/30/17 15:27) Patient Visit (04/30/17 ) Pt Eval Moderate Complexity (04/30/17 ) Nursing Communication (Patient (04/30/17 16:28) Nursing Communication (Patient (04/30/17 16:28) Patient Visit (05/01/17 ) Exercise Therap, Ea 15 Min (05/01/17 ) Gait Training, Ea 15 Min (05/01/17 ) Magnesium Hydroxide Oral Susp (Mom Oral (05/02/17 17:00) Ct Head Wo (05/02/17 18:03) Ketorolac Injection (Toradol Injection) (05/02/17 18:15) Hydrocodone/Apap 5/325 Tablet (Lortab 5 (05/02/17 22:15) Cyclobenzaprine Tablet (Flexeril Tablet) (05/02/17 19:45) Hydrocodone/Apap 5/325 Tablet (Lortab 5 (05/02/17 19:45) Dexamethasone Tablet (Decadron Tablet) (05/02/17 22:00) Neurological Checks Q4H (05/02/17 19:34) Dexamethasone Tablet (Decadron Tablet) (05/03/17 06:00) Dexamethasone Tablet (Decadron Tablet) (05/03/17 14:00) Dexamethasone Tablet (Decadron Tablet) (05/03/17 05:22) Dexamethasone Tablet (Decadron Tablet) (05/03/17 14:00) Basic Metabolic Panel (05/03/17 10:14) Patient Visit (05/03/17 ) Exercise Therap, Ea 15 Min (05/03/17 ) Gait Training, Ea 15 Min (05/03/17 ) Functional Activities, Ea 15 (05/03/17 ) Saliva Stimulant Mouth Nixon (Biotene Mo (05/03/17 14:30) Patient Visit (05/03/17 ) Speech Sound Lang Comp (05/03/17 ) Rehab Nursing Orders: Diseage Management, Edu in Press Rel Techn, Hydration Management, Nutrition Management, Pain Management Other Nursing Orders: Monitor for constipation and urinary retention s/p stroke Intensity of Therapy to be met Patient to be seen: Min.3h per day/5 of 7d PT IPOC Problem List: Activity Tolerance, Functional Strength, Safety, Balance, Gait, Transfer Treatment Plan: Continue Plan of Care Bed Mobility, Education, Functional Activity Av, Functional Strength, Group Therapy, Gait, Safety, Therapeutic Exercise, Transfers Treatment Duration: May 21, 2017 Frequency: At least 5 of 7 days/Wk (IRF) Estimated Hrs Per Day: 1.5 hours per day OT IPOC Problems: Decreased Safety Aware, Decreased UE Strength, Dependent Transfers, Impaired Coordination, Impaired Funct Balance, Impaired I ADL's, Impaired Self- Care Skills OT Treatment, Training and Edu: Yes OT Problems Pt admitted to ARU following acute hospitalization for CVA. Pt demonstrates decreased strength and coordination on left side and decreased ADL functioning, and mobility. Pt to benefit from skilled OT intervention for ADL training, transfers, strengthening, coordination, and home safety education to maximize level of independence and allow safe discharge home. Plan of Care: ADL Retraining, Functional Mobility, Group Exercise/Act as Ind, UE Funct Exercise/Act, UE Neuromus Re-Ed/Coord Treatment Duration: May 21, 2017 Frequency: At least 5 of 7 days/Wk (IRF) Estimated Hrs Per Day: 1.[address] IPOC Speech Therapy Treatment Plan: Continue Plan of Care Treatment Duration: May 24, 2017 Frequency: Modified Program (IRF) Estimated Hrs Per Day: .5 hour per day Social Media Senior Associate/Case Mgmt Social Media Senior Associate/Case Managemen: Discharge Planning, Patient/Family Counseling Physician IPOC Medical Issues being managed closely and that require the 24 hour availability of a physician:Headaches hiccups s/p recent [place] Medical Issues: Bowel/Bladder Function, DVT Prophylaxis, Falls Precautions, Fluid/Electrolyte/Nutrition Balance, Infection Protection, Pain Management, Other (List) (as per above) Brief Synthesis of Preadmission Screen, Post-Admission Evaluation, and Therapy Evaluations: 46 yo male who sustained a rt CVA with resulting LHP referred here from OSH for ongoing Stroke rehab Had been Independent and working as 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 PMH Etoh use and Tobacco C/O intermittent Headaches and Hiccups.Has a supprotive and family. Medical Prognosis: good Anticipated Length of Stay: 05-21-17 Rehab Goals Modified Independent to supervision for adls and mobility skills Anticipated discharge destinat: Home with family and [facility] DESMOND FAM MD May 04, 2017 10:06
--- NOTE | 2017-05-04 11:57 | ST Dysphagia Evaluation ---
Speech Evaluation-General Medical Diagnosis R MCA/Basal Ganglia CVA Onset Date: Apr 24, 2017 Therapy Diagnosis Therapy Diagnosis: Mild Pharyngeal Dysphagia Precautions Precautions: Aspiration Precautions/Isolations: Standard Precautions Referral Referring Physician: Dr. Jeffery Brady Reason for Referral: Evaluation/Treatment Clinical Bedside Swallowing Evaluation Medical History Pertinent Medical History: Alcoholism Reviewed History: Yes Social History Home: [facility] Current Living Status: Spouse Speech PLF/Current-Dysphagia Prior Level of Function The patient denied prior challenges with swallowing prior to his CVA. The patient has a past medical history significant for head and neck cancer treated with chemoradiation. Per patient, he did not have a PEG tube placed and was able to eat and drink throughout treatment, however, did lose approximately 30 pounds. Subjective The patient was recently admitted to [facility] following a CVA. The patient greeted the clinician appropriately and was agreeable to participation in the dysphagia evaluation. Upon transfer, the patient arrived with swallowing strategies (turn head left, swallow twice, no straws). Per patient, the strategies appear to cause more choking as he is concentrating on them and "forgetting to just swallow." Cognitive Status Patient Orientation: Person, Place, Time, Situation Oral Motor Skills Dentition: Natural Denture Type: Full- Upper & Lower Current Food Consistancy: Regular, Thin Liquids Ability to Follow Directions: Excellent Oral Expression Ability: No Impairment Voice Voice Phonatory-Based Quality: Breathy (The patient appeared to have a mildly dysphonic voice quality (hypofunctional)) Voice Pitch: Normal Voice Loudness: Mildly Soft/Quiet Face Facial Symmetry: Asymmetrical Oral-Facial Assessment Oral-Facial Dentition: Normal Labial Seal Description: Droops Left Smile: Droops Left Puff Cheeks: Reduced Strength (Left) Lingual Protrusion: Abnormal (Right deviation of lingual tip upon protrusion) Lingual ROM: Normal Lingual Strength: Normal Pharynx Velopharyngeal Move.: Normal Volitional Dry Swallow: Yes Dysphagia Evaluation Consistencies Presented: Regular, Thin Liquid, Pureed 1. While the patient did not demonstrate oral pocketing (left) throughout the evaluation, the patient reported intermittently biting his left cheek. Due to this, the patient was encouraged to place food and liquid on his right, strong side for mastication. - No pharyngeal deficits were noted. - No signs/symptoms of aspiration were displayed with five teaspoons of thin liquid, 6 ounces of thin liquid via cup sip, or four straw drinks. Additionally , no signs/symptoms of aspiration were displayed with multiple boluses of puree or solid consistencies. The patient's vocal quality remained clear. Dietary Recommendations: Regular Liquid Recommendations: Thin Swallowing Precautions: Pocketing, Small Bites and Sips, Sitting 90 Degrees 30 Post Intake, Left Tongue Sweep - Place food and liquid on right strong side for mastication. Dysphagia Evaluation Summary The patient displayed mild oropharyngeal dysphagia characterized by reduced adduction of bilateral vocal cords and decreased left labial range of motion. Speech Short Term Goals Short Term Goals Short Term Goals 1. The patient will complete oral motor exercises to improve left labial range of motion and strength. 2. The patient will display 90% accuracy with functional safety problem solving. 3. The patient will attend to the left side of a structured task without verbal cues and tactile redirection with 80% accuracy. 2. The patient will display 80% accuracy with oral pharyngeal strengthening exercises with mild clinician verbal cueing. Time Frame-STG: Two Weeks Speech [place] Goals [place] Goals 1. The patient will demonstrate improved facial strength, as well as, improved attention for increased function and safety with ADL's and communication. 2. The patient will tolerate the least restrictive diet without signs/symptoms of aspiration or laryngeal penetration. Time Frame: Three Weeks Comprehension: 6 Expression: 6 Social Interaction: 6 Problem Solvin Memory: 6 Speech-Plan Treatment Plan Speech Therapy Treatment Plan: Continue Plan of Care Continue skilled speech pathology to target swallowing strategies, as well as, swallowing safety precautions. Treatment Duration: May 24, 2017 Frequency: Modified Program (IRF) Estimated Hrs Per Day: .5 hour per day Rehab Potential: Good Safety Risks/Education Teaching Recipient: Patient Teaching Methods: Discussion Response to Teaching: Verbalize Understanding Education Topics Provided: Results, Recommendations, Plan of Care, Swallowing Strategies, Signs/Symptoms of Aspiration Time Speech Therapy Time In: 08:30 Speech Therapy Time Out: 09:00 Total Billed Time: 30 Billed Treatment Time 1 KEYONSHAHEEDSUNITA ROMERO May 04, 2017 11:57
[2017-05-04 11:59] VITALS: BP 113/74
--- NOTE | 2017-05-04 12:53 | Occupational Ther Daily Note ---
OT Current Status-Daily Note Subjective Pt supine in bed at beginning of tx. Agreed to therapy. No mention of pain at the beginning of tx. Appearance Alert, cooperative. Mental Status/Objective Functional [place] Measure 0=Not Assessed/NA 4=Minimal Assistance 1=Total Assistance 5=Supervision or Setup 2=Maximal Assistance 6=Modified [place] 3=Moderate Assistance 7=Complete [place] ADL-Treatment Pt stated he had showered last night and just wanted a clean shirt and socks. Pt dressed and groomed, then went to gym for exercises. Pt walked from EOB to toilet with CGA and small base quad cane. Functional [place] Measure 0=Not Assessed/NA 4=Minimal Assistance 1=Total Assistance 5=Supervision or Setup 2=Maximal Assistance 6=Modified [place] 3=Moderate Assistance 7=Complete IndependenceIRFPAI Quality Coding Scale 6 Independent with activity with or without an assistive device 5 Patient requires set up or clean up by helper. Patient completes activity by themselves 4 Supervision or touching assist (CGA). [place] provide cues , steadying assist 3 The helper provides less than half the effort to complete the activity 2 The helper provides more than half the effort to complete the activity 1 Dependent. The helper does all the effort to complete an activity 7 Patient refused to complete or attempt activity 9 The patient did not perform the activity before the current illness or injury 88 Not attempted due to Medical conditions or safety concerns Grooming (FIM): 5 (Pt brushed teeth and put on deodorant with SBA for safety. Pt had one observed LOB but was able to regain balance unassisted using edge of sink to steady himself. Pt used L hand to hold toothpaste, toothbrush and deodorant. ) Upper Body (FIM): 5 (Pt able to don short sleeved t shirt while seated EOB with verbal cue to dress L arm first with supervision. ) Lower Body Dressing (FIM): 4 (Pt able to don underwear without assist while seated and SBA to manage clothing while standing. Pt able to don socks and shoes but needed assist to tie laces on both shoes although he did attempt to tie them. Did pt education of modified ADL technique to shoe tying with pt attempting but unsuccessful at return demonstration. ) Toileting (FIM): 4 (Pt able to toilet and manage clothing with CGA the first time. During toileting a second time, pt managed clothing and hygiene with SBA. Pt needed verbal cue to flush as he was using a lot of toilet paper. Pt requested clean underwear and chose to not put pants back on. Grab bars, tall toilet, small base quad cane. ) Toilet/Commode Transfer (FIM): 4 (Pt transfers to toilet with SBA. Grab bars, tall toilet, small base quad cane. ) Other Treatment Pt walked to gym with small base quad cane and CGA. Pt did arm bike for 10 minutes on low resistance, working on L hand continuously grasping handle (did three consecutive rounds, improved from yesterday as no thom bandage used) and coordination. Pt practiced upper arm movements for shoulder, elbow, forearm, wrist, and hand while grasping pool noodle and using mirror to assist visual following L UE movement (improved as pt needed less skilled facilitation today to complete exercises). Pt did table top activity with large cones then small cones, grasping and moving them with the LUE. Pt practiced hand and arm movements, including grasp and release, by tossing and picking up melchor bags, with verbal cues to maintain alignment and needing visual input to control grasp effectively. While in gym, Dr. Brady did rounds and pt stated he had a headache and the hiccups. Nurse later brought pain meds. When time was done, pt impulsively stood to leave. Pt walked back to room with small base quad cane and CGA and used the toilet, then walked CGA with small base quad cane to sit EOB. Pt supine in bed with bed alarm set and all needs met at end of tx. Education OT Patient Education: Correct positioning, Modified ADL techniques, Purpose of tx/functional activities, Safety issues Teaching Recipient: Patient Teaching Methods: Demonstration, Discussion Response to Teaching: Verbalize Understanding, Return Demonstration, Reinforcement Needed OT Short Term Goals Short Term Goals Time Frame: May 07, 2017 Lower Body Dressing(FIM): 5 Toileting(FIM): 5 Toilet/Commode Transfer(FIM): 5 Additional Short Term Goals: 1-Demonstrate ADL Tasks, 2-Verbalize Understanding , 3-ImproveStrength/Av 1=Demonstrate adherence to instructed precautions during ADL tasks. 2=Patient will verbalize/demonstrate understanding of assistive devices/ modifications for ADL. 3=Patient will improve strength/tolerance for activity to enable patient to perform ADL's. OT Senior Living Goals Senior Living Goals Time Frame: May 21, 2017 Eating (FIM): 6 Eating (QC): 6 Groomin Oral Hygiene (QC): 6 Bathing(FIM): 5 Shower/Bathe Self (QC): 5 Upper Body Dressing(FIM): 6 Upper Body Dressing (QC): 6 Lower Body Dressing(FIM): 6 Lower Body Dressing (QC): 6 On/Off Footwear (QC): 6 Toileting(FIM): 6 Toileting Hygiene (QC): 6 Toilet/Commode Transfer(FIM): 6 Toilet/Commode Transfer (QC): 6 Shower Transfer(FIM): 5 Comprehension(FIM): 6 Expression (FIM): 6 Social Interaction(FIM): 6 Problem Solving(FIM): 6 Memory(FIM): 6 Additional Goals: 1-Demonstrate ADL Tasks, 2-Verbalize Understanding, 3- ImproveStrength/Av 1=Demonstrate adherence to instructed precautions during ADL tasks. 2=Patient will verbalize/demonstrate understanding of assistive devices/ modifications for ADL. 3=Patient will improve strength/tolerance for activity to enable patient to perform ADL's. OT Education/Plan Problem List/Assessment Pt admitted to ARU following acute hospitalization for CVA. Pt demonstrates decreased strength and coordination on left side and decreased ADL functioning, and mobility. Pt to benefit from skilled OT intervention for ADL training, transfers, strengthening, coordination, and home safety education to maximize level of independence and allow safe discharge home. Discharge Recommendations Plan/Recommendations: Continue POC Treatment Plan/Plan of Care Patient would benefit from OT for education, treatment and training to promote independence in ADL's, mobility, safety and/or upper extremity function for ADL' s. Plan of Care: ADL Retraining, Functional Mobility, Group Exercise/Act as Ind, UE Funct Exercise/Act, UE Neuromus Re-Ed/Coord Treatment Duration: May 21, 2017 Frequency: At least 5 of 7 days/Wk (IRF) Estimated Hrs Per Day: 1.5 hours per day Agreement: Yes Rehab Potential: Good Time/GCodes Start Time: 09:00 Stop Time: 10:38 Total Time Billed (hr/min): 98 Billed Treatment Time visit, ADL 10 minutes, neuromotor 88 minutes STEPHIE DUMAS OT May 04, 2017 12:53
--- NOTE | 2017-05-04 13:24 | Physical Therapy Daily Note ---
PT Daily Note-Current Subjective Patient is laying in bed upon PT entering the room. He states he is doing good today, but he wants to get out of here. He agrees to PT. Pain Numeric Pain Scale: 0-No Pain Location: No Pain Reported Appearance Patient appears in good health. He is left post tx in his bed with call light and phone in reach. Mental Status Patient Orientation: Normal For Age Transfers Functional [place] Measure 0=Not Assessed/NA 4=Minimal Assistance 1=Total Assistance 5=Supervision or Setup 2=Maximal Assistance 6=Modified [place] 3=Moderate Assistance 7=Complete IndependenceIRFPAI Quality Coding Scale 6 Independent with activity with or without an assistive device 5 Patient requires set up or clean up by helper. Patient completes activity by themselves 4 Supervision or touching assist (CGA). [place] provide cues , steadying assist 3 The helper provides less than half the effort to complete the activity 2 The helper provides more than half the effort to complete the activity 1 Dependent. The helper does all the effort to complete an activity 7 Patient refused to complete or attempt activity 9 The patient did not perform the activity before the current illness or injury 88 Not attempted due to Medical conditions or safety concerns Transfers (B, C, W/C) (FIM): 5 Scootin Rollin Supine to/from Sit: 5 Sit to/from Stand: 5 Patient performs all transfers safely with SBA from PT. Weight Bearing Right Lower Extremity: Right Full Weight Bearing Left Lower Extremity: Left Full Weight Bearing Gait Training Does the Patient Walk?: Yes Gait (FIM): 5 Distance: 500' Gait Level of Assist: 5 Gait Persons Needed: 1 Gait Assistive Device: Cane Small Base Quad Patient walks with reciprocal gait pattern. Patient WB through R UE on the cane to assist the weaker L LE. Exercises Supine Ex: Bridging (10 second hold), Heel Slides (heels on large ball, hamstring curl), Short Arc Quads (3 second hold 2# weight), Straight leg raise ( bilateral 2# weight), Hip abd/add (hip abd only; bilateral side lying 2# weight) Supine Reps: 20 Seated Therapy Exercises: Sit to stand, Long arc quads (bilateral 2# weight), Hip abd/add (ball between knees; squeeze 5" hold) Seated Reps: 20 Standing: Heel/toe raises (on 4" step bilateral), 3 way Ex=Flex, Abd, Ext (2# weight bilateral), Side steps (side 4" stepups, bilateral ), Unilateral stance ( 10 x 10" L LE in parallel bars) Standing Reps: 20 NuStep Minutes: 15 (For WB through L extremities; improve muscular endurance) NuStep Workload: 5 Assessment Current Status: Good Progress Patient has great tolerance for therapeutic interventions and seems very motivated to recover and get out of the hospital. PT will continue to challenge patient through WB activities as well as other muscular strength and endurance activities. PT Parts Room Associate Goals Group Home Goals PT Group Home Goals Time Frame: May 21, 2017 Transfers (B,C,W/C) (FIM): 6 Sit to Lying (QC): 6 Lying-Sitting on Side/Bed(QC): 6 Sit to Stand (QC): 6 Rollin Roll Left to Right (QC): 6 Chair/[id number]-[id number] Xfer(QC): 6 Car Transfer (QC): 6 Does the Patient Walk: Yes Gait (FIM): 6 Gait distance (FIM): 3=150 ft Distance: 250' Walk 10 feet (QC): 6 Walk 10ft-Uneven Surface(QC): 6 Walk 50ft with 2 Turns (QC): 6 Walk 150 ft (QC): 6 Gait Level of Assist: 6 Gait Assistive Device: Cane Single Point, Walker Nav Does the Pt use WC or Scooter?: No Stairs (FIM): 5 # of Steps: 12 1 Step (curb) (QC): 5 4 Steps (QC): 5 12 Steps (QC): 5 Stairs Level Of Assist: 5 Picking up an Object (QC): 5 PT Plan Problem List Problem List: Activity Tolerance, Functional Strength, Safety, Balance, Gait Treatment/Plan Treatment Plan: Continue Plan of Care Treatment Plan: Bed Mobility, Education, Functional Activity Av, Functional Strength, Group Therapy, Gait, Safety, Therapeutic Exercise, Transfers Treatment Duration: May 21, 2017 Frequency: At least 5 of 7 days/Wk (IRF) Estimated Hrs Per Day: 1.5 hours per day Patient and/or Family Agrees t: Yes Time/GCodes Time In: 1055 Time Out: 1225 Total Billed Treatment Time: 90 Total Billed Treatment 1 visit GT 15 min EX x 5 75 min NICOLA CHOI PT May 04, 2017 13:24
[2017-05-04 16:09] VITALS: BP 111/57
[2017-05-04] MEDS: METOCLOPRAMIDE 10 MG (REGLAN) TAB PO PRN (18:01)
[2017-05-04] MEDS: ATORVASTATIN 40 MG (LIPITOR) TABLET PO SCH (19:54)
[2017-05-04] MEDS ORDERED: ANTACID SUSP 30 ML UDC (MYLANTA) PO PRN (20:00)
[2017-05-04 20:17] VITALS: BP 105/70
[2017-05-04 23:26] VITALS: BP 109/63
[2017-05-05 04:00] VITALS: BP 108/61
[2017-05-05] MEDS: LEVOTHYROXINE 100 MCG (LEVOTHROID) TAB PO SCH (06:07)
--- NOTE | 2017-05-05 08:08 | Progress Note (SOAP) ---
Subjective Time Seen by Provider: 08:05 Subjective/Events-last exam CVA on left side. Patient complaining of mine a headache today. To monitor the headache. Left extremities much better. Patient able to cotton picker his left hand and arm. Patient moving left leg better Objective Exam Vital Signs Date Time Temp Pulse Resp B/P (MAP) Pulse Ox O2 Delivery O2 Flow Rate FiO2 05/05/17 04:00 98.2 56 18 108/61 98 Room Air 05/04/17 23:26 97.9 64 16 109/63 97 Room Air 05/04/17 20:17 98.2 78 14 105/70 96 Room Air 05/04/17 16:09 98.0 71 14 111/57 98 Room Air 05/04/17 11:59 98.1 71 20 113/74 99 Room Air 05/04/17 09:00 97 Room Air Capillary Refill : General Appearance: No Apparent Distress, Thin HEENT: Normal ENT Inspection Neck: Full Range of Motion, Normal Inspection Respiratory: No Accessory Muscle Use, No Respiratory Distress Cardiovascular: Regular Rate, Rhythm Assessment/Plan Assessment/Plan Assess & Plan/Chief Complaint CVA on left. Acute [place]. tobaccoism. Alcoholism. . 05/04/17. CVA on left. Acute [place] history. Tobaccoism. Alcoholism. Patient moving his left extremities better.. . 05/05/17 CVA on left. Acute [place] history. Tobacco listen. Alcoholism. patient moving left side much better and stronger. Patient improving. Patient complaining of minor headache today on the right side Clinical Quality Measures DVT/VTE Risk/Contraindication: Risk Factor Score Per Nursin RFS Level Per Nursing on Admit: 4+=Very High NELLY JONES DO May 05, 2017 08:08
[2017-05-05 08:14] VITALS: BP 123/80
[2017-05-05] MEDS: FUROSEMIDE 20 MG (LASIX) TAB PO SCH (08:20)
[2017-05-05] MEDS: CARVEDILOL 3.125 MG (COREG) TABLET PO SCH ×2 (08:20→21:42)
[2017-05-05] MEDS: HYDROcodone/APAP 5 MG/325 MG (LORTAB) TAB PO PRN (08:21)
[2017-05-05] MEDS: CYCLOBENZAPRINE 10 MG (FLEXERIL) TAB PO PRN ×2 (08:22→23:59)
[2017-05-05] MEDS: CALCIUM CARBONATE 500 MG (TUMS) TAB.CHEW PO PRN ×3 (10:07→21:43)
--- NOTE | 2017-05-05 10:23 | PM & R (SOAP) Progress Note ---
Subjective Time Seen by Provider: 09:50 Subjective/Events-last exam Patient was seen in his room this AM Discussed case with RN Hiccups not continuous and Tums appear to help-may be partially due to reflux and or anxiety.Patient SBA for transfers Review of Systems HEENT: Other (hiccups) Objective Exam Last Set of Vital Signs Vital Signs Date Time Temp Pulse Resp B/P (MAP) Pulse Ox O2 Delivery O2 Flow Rate FiO2 05/05/17 08:14 73 18 123/80 99 Room Air 05/05/17 04:00 98.2 Capillary Refill : I&O Intake and Output 05/06/17 00:00 Intake Total 700 ml Balance 700 ml Intake Oral 700 ml # Voids 3 # Bowel Movements 1 General: Alert, Oriented X3, Cooperative, No Acute Distress HEENT: Atraumatic, PERRLA, EOMI, Mucous Memb Moist/[place] Neck: Supple, No JVD Lungs: Clear to Auscultation Heart: Regular Rate Abdomen: Normal Bowel Sounds, Soft, No Tenderness, No Masses Extremities: No Edema Neuro: Other (Mild left HP) Results Lab Laboratory Tests 05/03/17 10:28: Sodium Level 134L, Potassium Level 4.4, Chloride Level 100, Carbon Dioxide Level 25, Anion Gap 9, Blood Urea Nitrogen 23H, Creatinine 1.06, Estimat Glomerular Filtration Rate > 60, BUN/Creatinine Ratio 22, Glucose Level 159H, Calcium Level 9.9 Assessment/Plan Assessment Rt CVA with Left HP ETOH abuse currently abstaining Tobaccoism currently abstaining Headaches improving at this time Anxiety improved with meds Steroid induced Hyperglycemia Hiccups S/P IA on coreg Plan Continue PT/OT/ST Team Conference to be held later today-See report for full functional update and POC and ELOS CT films to be compared from outside facility with ours when available Follow-up re RX for hiccups.-Pharmacy recommended regaln and so ordered but patient reports that TUMS more helpful and hiccups are not continuous.-will monitor DESMOND FAM MD May 05, 2017 10:23
--- NOTE | 2017-05-05 10:30 | Occupational Ther Daily Note ---
OT Current Status-Daily Note Subjective Pt supine in bed at beginning of tx. Agreeable to therapy but didn't want to leave room. Pt c/o pain in L jewish area but had already received pain medication for this prior to therapy. Pt did state that this pain was the same feeling he had when he had the brain bleed and that the doctor had stated that if the pain continued, another scan would be ordered. Appearance Alert but tired due to medication for pain, cooperative. Mental Status/Objective Functional [place] Measure 0=Not Assessed/NA 4=Minimal Assistance 1=Total Assistance 5=Supervision or Setup 2=Maximal Assistance 6=Modified [place] 3=Moderate Assistance 7=Complete [place] ADL-Treatment Functional [place] Measure 0=Not Assessed/NA 4=Minimal Assistance 1=Total Assistance 5=Supervision or Setup 2=Maximal Assistance 6=Modified [place] 3=Moderate Assistance 7=Complete IndependenceIRFPAI Quality Coding Scale 6 Independent with activity with or without an assistive device 5 Patient requires set up or clean up by helper. Patient completes activity by themselves 4 Supervision or touching assist (CGA). [place] provide cues , steadying assist 3 The helper provides less than half the effort to complete the activity 2 The helper provides more than half the effort to complete the activity 1 Dependent. The helper does all the effort to complete an activity 7 Patient refused to complete or attempt activity 9 The patient did not perform the activity before the current illness or injury 88 Not attempted due to Medical conditions or safety concerns Other Treatment Pt was tired from pain pill and preferred to not leave the room for therapy, so ROM activities were done while pt was supine in bed. Using a josé, pt worked through AAROM stretches for shoulder, arm, forearm, elbow, wrist, and hand, doing 10 reps for each. BROWN completed massage and stretch to chest and scapular muscles in LUE to alleviate tightness of muscles and the forward thrust of the shoulder. Pt educated on self-ROM while in supine and was able to return demonstration without assistance, done in gravity eliminated position. Pt demonstrated wrist extension against gravity 5x prior to noticeable fatigue. Pt was left supine in bed with all needs met, four rails up at end of tx. Education OT Patient Education: Correct positioning, Purpose of tx/functional activities , Safety issues Teaching Recipient: Patient Teaching Methods: Demonstration, Discussion Response to Teaching: Verbalize Understanding, Return Demonstration, Reinforcement Needed OT Short Term Goals Short Term Goals Time Frame: May 07, 2017 Lower Body Dressing(FIM): 5 Toileting(FIM): 5 Toilet/Commode Transfer(FIM): 5 Additional Short Term Goals: 1-Demonstrate ADL Tasks, 2-Verbalize Understanding , 3-ImproveStrength/Av 1=Demonstrate adherence to instructed precautions during ADL tasks. 2=Patient will verbalize/demonstrate understanding of assistive devices/ modifications for ADL. 3=Patient will improve strength/tolerance for activity to enable patient to perform ADL's. OT Long-Term Goals [employer] D[employer] Car Stewardess Goals Time Frame: May 21, 2017 Eating (FIM): 6 Eating (QC): 6 Groomin Oral Hygiene (QC): 6 Bathing(FIM): 5 Shower/Bathe Self (QC): 5 Upper Body Dressing(FIM): 6 Upper Body Dressing (QC): 6 Lower Body Dressing(FIM): 6 Lower Body Dressing (QC): 6 On/Off Footwear (QC): 6 Toileting(FIM): 6 Toileting Hygiene (QC): 6 Toilet/Commode Transfer(FIM): 6 Toilet/Commode Transfer (QC): 6 Shower Transfer(FIM): 5 Comprehension(FIM): 6 Expression (FIM): 6 Social Interaction(FIM): 6 Problem Solving(FIM): 6 Memory(FIM): 6 Additional Goals: 1-Demonstrate ADL Tasks, 2-Verbalize Understanding, 3- ImproveStrength/Av 1=Demonstrate adherence to instructed precautions during ADL tasks. 2=Patient will verbalize/demonstrate understanding of assistive devices/ modifications for ADL. 3=Patient will improve strength/tolerance for activity to enable patient to perform ADL's. OT Education/Plan Problem List/Assessment Pt admitted to ARU following acute hospitalization for CVA. Pt demonstrates decreased strength and coordination on left side and decreased ADL functioning, and mobility. Pt to benefit from skilled OT intervention for ADL training, transfers, strengthening, coordination, and home safety education to maximize level of independence and allow safe discharge home. Discharge Recommendations Plan/Recommendations: Continue POC Treatment Plan/Plan of Care Patient would benefit from OT for education, treatment and training to promote independence in ADL's, mobility, safety and/or upper extremity function for ADL' s. Plan of Care: ADL Retraining, Functional Mobility, Group Exercise/Act as Ind, UE Funct Exercise/Act, UE Neuromus Re-Ed/Coord Treatment Duration: May 21, 2017 Frequency: At least 5 of 7 days/Wk (IRF) Estimated Hrs Per Day: 1.5 hours per day Agreement: Yes Rehab Potential: Good Time/GCodes Start Time: 09:04 Stop Time: 10:04 Total Time Billed (hr/min): 60 Billed Treatment Time visit, NM 4 (60 minutes) YONI CANSECO May 05, 2017 10:30
--- NOTE | 2017-05-05 11:59 | Physical Therapy Daily Note ---
PT Daily Note-Current Subjective Pt. states he has a headache in same spot he has before , right temporo parietal area (pointing). States he is concerned about his disability and feels he should get it all in order before he DCs from hospital. This COAL TRAMMER communicated this to SW. Pain Numeric Pain Scale: 4 Location: Right Location Body Site: Head Pain Description: Ache Appearance some minimal difficulty with eye follow eye movements Mental Status Patient Orientation: Normal For Age Transfers Functional [place] Measure 0=Not Assessed/NA 4=Minimal Assistance 1=Total Assistance 5=Supervision or Setup 2=Maximal Assistance 6=Modified [place] 3=Moderate Assistance 7=Complete IndependenceIRFPAI Quality Coding Scale 6 Independent with activity with or without an assistive device 5 Patient requires set up or clean up by helper. Patient completes activity by themselves 4 Supervision or touching assist (CGA). [place] provide cues , steadying assist 3 The helper provides less than half the effort to complete the activity 2 The helper provides more than half the effort to complete the activity 1 Dependent. The helper does all the effort to complete an activity 7 Patient refused to complete or attempt activity 9 The patient did not perform the activity before the current illness or injury 88 Not attempted due to Medical conditions or safety concerns Transfers (B, C, W/C) (FIM): 6 Scootin Rollin Supine to/from Sit: 6 Sit to/from Stand: 6 Weight Bearing Right Lower Extremity: Right Full Weight Bearing Left Lower Extremity: Left Full Weight Bearing Gait Training Does the Patient Walk?: Yes Gait (FIM): 4 Distance (FIM): 3=150 ft (250x3) Gait Level of Assist: 4 Gait Persons Needed: 1 Gait Assistive Device: Cane Large Base Quad 3 episodes of near LOB with gait. Does better with cues for heel strike etc and awareness of L foot heel and leg etc Stair Training Stair Training: Handrails/: 1 handrail, 2 handrails Balance Picking up an Object (QC): 5 Exercises Supine Ex: Bridging, Rolling, Scooting, Straight leg raise, Hip abd/add Supine Reps: 15 NuStep Minutes: 10 NuStep Workload: 5 Neuromuscular MELENDEZ 44/56 Treatments exercises in standing and prone for hip ext as well as side lying abd all x15 Assessment Current Status: Good Progress pt. is worried about his future and income etc , healthcare etc PT Shelter Goals Shelter Goals PT Integration Software Developer Goals Time Frame: May 21, 2017 Transfers (B,C,W/C) (FIM): 6 Sit to Lying (QC): 6 Lying-Sitting on Side/Bed(QC): 6 Sit to Stand (QC): 6 Rollin Roll Left to Right (QC): 6 Chair/[id number] Xfer(QC): 6 Car Transfer (QC): 6 Does the Patient Walk: Yes Gait (FIM): 6 Gait distance (FIM): 3=150 ft Distance: 250' Walk 10 feet (QC): 6 Walk 10ft-Uneven Surface(QC): 6 Walk 50ft with 2 Turns (QC): 6 Walk 150 ft (QC): 6 Gait Level of Assist: 6 Gait Assistive Device: Cane Single Point, Walker Nav Does the Pt use WC or Scooter?: No Stairs (FIM): 5 # of Steps: 12 1 Step (curb) (QC): 5 4 Steps (QC): 5 12 Steps (QC): 5 Stairs Level Of Assist: 5 Picking up an Object (QC): 5 PT Plan Treatment/Plan Treatment Plan: Continue Plan of Care Treatment Plan: Bed Mobility, Education, Functional Activity Av, Functional Strength, Group Therapy, Gait, Safety, Therapeutic Exercise, Transfers Treatment Duration: May 21, 2017 Frequency: At least 5 of 7 days/Wk (IRF) Estimated Hrs Per Day: 1.5 hours per day Patient and/or Family Agrees t: Yes Safety Risks/Education Patient Education: Gait Training, Transfer Techniques, Steps, Correct Positioning, Disease Process, Safety Issues Teaching Recipient: Patient Teaching Methods: Demonstration, Discussion Response to Teaching: Verbalize Understanding, Return Demonstration, Reinforcement Needed Time/GCodes Time In: 1045 Time Out: 1200 Total Billed Treatment Time: 75 Total Billed Treatment 1,NM30m,EX15m,GT15m,FA15m G Codes Necessary: No JUAN JAMES COAL TRAMMER May 05, 2017 11:59
--- NOTE | 2017-05-05 12:37 | Speech Therapy Daily Note ---
Speech Daily Progress Note Subjective Date Seen by Provider: May 05, 2017 Time Seen by Provider: 08:30 The patient was seated upright in bed upon entrance. The patient was agreeable to participation in the cognitive treatment session. Objective A standardized cognitive screening was completed on this date with the following results: - Visuospatial/Executive: The patient was able to complete clock drawing accurately. The patient was able to complete trail-making accurately on the right, however, did not locate numbers on the left. The patient completed the right side of the cube accurately, however, could not copy the left. Per patient , "I am usually really good at three dimensional objects." - Naming: The patient was able to name three of three black and white photographs. - Memory and Delayed Recall: The patient was able to recall five of five items immediately and three of five items following a five minute delay. - Attention: The patient was able to repeat five digits forward and three digits in reverse and identify a specific letter in a string of letters. The patient was unable to complete serial seven subtraction. - Abstraction: The patient was able to state a similarity between two items. - Language: The patient was able to repeat simple phrases and word-finding tasks. - Orientation: The patient was oriented to month, year, place, date, day of week , and city. - The patient displayed an overall score of +24/30 correlating to a mild cognitive impairment in the areas of executive functioning and attention. Assessment Assessment Current Status: Good Progress Treatment Plan Continue Plan of Care Communication Comprehension: 5 Expression: 5 Social Cognition Social Interaction: 6 Problem Solvin Memory: 4 Speech Short Term Goals Short Term Goals Short Term Goals 1. The patient will complete oral motor exercises to improve left labial range of motion and strength. 2. The patient will display 90% accuracy with functional safety problem solving. 3. The patient will attend to the left side of a structured task without verbal cues and tactile redirection with 80% accuracy. 2. The patient will display 80% accuracy with oral pharyngeal strengthening exercises with mild clinician verbal cueing. Time Frame-STG: Two Weeks Speech Baling Machine Tender Goals Penitentiary Goals 1. The patient will demonstrate improved facial strength, as well as, improved attention for increased function and safety with ADL's and communication. 2. The patient will tolerate the least restrictive diet without signs/symptoms of aspiration or laryngeal penetration. Time Frame: Three Weeks Comprehension: 6 Expression: 6 Social Interaction: 6 Problem Solvin Memory: 6 Speech-Plan Treatment Plan Speech Therapy Treatment Plan: Continue Plan of Care Continue skilled speech pathology to target left neglect and safety problem solving. Treatment Duration: May 24, 2017 Frequency: Modified Program (IRF) Estimated Hrs Per Day: .5 hour per day Rehab Potential: Good Safety Risks/Education Teaching Recipient: Patient Teaching Methods: Discussion Response to Teaching: Verbalize Understanding Education Topics Provided: Results of Cognitive Screening, Recommendations for Future Sessions Time Speech Therapy Time In: 08:30 Speech Therapy Time Out: 09:00 Total Billed Time: 30 Billed Treatment Time 1, SUNITA TERRY May 05, 2017 12:37
[2017-05-05 12:47] VITALS: BP 101/56
[2017-05-05] MEDS: METOCLOPRAMIDE 10 MG (REGLAN) TAB PO PRN ×2 (12:50→23:59)
--- NOTE | 2017-05-05 13:44 | Occupational Ther Daily Note ---
OT Current Status-Daily Note Subjective Pt supine in bed. Agreeable to therapy. No mention of pain. Appearance Alert, cooperative. Mental Status/Objective Functional Agenda Measure 0=Not Assessed/NA 4=Minimal Assistance 1=Total Assistance 5=Supervision or Setup 2=Maximal Assistance 6=Modified Agenda 3=Moderate Assistance 7=Complete Agenda ADL-Treatment Functional Agenda Measure 0=Not Assessed/NA 4=Minimal Assistance 1=Total Assistance 5=Supervision or Setup 2=Maximal Assistance 6=Modified [place] 3=Moderate Assistance 7=Complete IndependenceIRFPAI Quality Coding Scale 6 Independent with activity with or without an assistive device 5 Patient requires set up or clean up by helper. Patient completes activity by themselves 4 Supervision or touching assist (CGA). [place] provide cues , steadying assist 3 The helper provides less than half the effort to complete the activity 2 The helper provides more than half the effort to complete the activity 1 Dependent. The helper does all the effort to complete an activity 7 Patient refused to complete or attempt activity 9 The patient did not perform the activity before the current illness or injury 88 Not attempted due to Medical conditions or safety concerns Other Treatment Pt walked to gym with small base quad cane and CGA. Pt used arm bike for 6 minutes for coordination of LUE, being able to keep L hand on handle approximately 50% of the time with pt using visual input and receiving verbal cues to remind pt to tighten oracle endeca consultant to keep hand on handle. Pt used overhead linda system to guide self AAROM, with L hand wrapped to handle with thom bandage. Pt demonstrated WFL L shldr extension during linda exercise. Pt walked back to room with small base quad cane and CGA. Pt in bed with all needs met and bed alarm not set per nurse. Education OT Patient Education: Correct positioning, Purpose of tx/functional activities Teaching Recipient: Patient Teaching Methods: Demonstration, Discussion Response to Teaching: Verbalize Understanding, Return Demonstration OT Short Term Goals Short Term Goals Time Frame: May 07, 2017 Lower Body Dressing(FIM): 5 Toileting(FIM): 5 Toilet/Commode Transfer(FIM): 5 Additional Short Term Goals: 1-Demonstrate ADL Tasks, 2-Verbalize Understanding , 3-ImproveStrength/Av 1=Demonstrate adherence to instructed precautions during ADL tasks. 2=Patient will verbalize/demonstrate understanding of assistive devices/ modifications for ADL. 3=Patient will improve strength/tolerance for activity to enable patient to perform ADL's. OT Resource Coordinator Goals Care Home Goals Time Frame: May 21, 2017 Eating (FIM): 6 Eating (QC): 6 Groomin Oral Hygiene (QC): 6 Bathing(FIM): 5 Shower/Bathe Self (QC): 5 Upper Body Dressing(FIM): 6 Upper Body Dressing (QC): 6 Lower Body Dressing(FIM): 6 Lower Body Dressing (QC): 6 On/Off Footwear (QC): 6 Toileting(FIM): 6 Toileting Hygiene (QC): 6 Toilet/Commode Transfer(FIM): 6 Toilet/Commode Transfer (QC): 6 Shower Transfer(FIM): 5 Comprehension(FIM): 6 Expression (FIM): 6 Social Interaction(FIM): 6 Problem Solving(FIM): 6 Memory(FIM): 6 Additional Goals: 1-Demonstrate ADL Tasks, 2-Verbalize Understanding, 3- ImproveStrength/Av 1=Demonstrate adherence to instructed precautions during ADL tasks. 2=Patient will verbalize/demonstrate understanding of assistive devices/ modifications for ADL. 3=Patient will improve strength/tolerance for activity to enable patient to perform ADL's. OT Education/Plan Problem List/Assessment Pt admitted to ARU following acute hospitalization for CVA. Pt demonstrates decreased strength and coordination on left side and decreased ADL functioning, and mobility. Pt to benefit from skilled OT intervention for ADL training, transfers, strengthening, coordination, and home safety education to maximize level of independence and allow safe discharge home. Discharge Recommendations Plan/Recommendations: Continue POC Treatment Plan/Plan of Care Patient would benefit from OT for education, treatment and training to promote independence in ADL's, mobility, safety and/or upper extremity function for ADL' s. Plan of Care: ADL Retraining, Functional Mobility, Group Exercise/Act as Ind, UE Funct Exercise/Act, UE Neuromus Re-Ed/Coord Treatment Duration: May 21, 2017 Frequency: At least 5 of 7 days/Wk (IRF) Estimated Hrs Per Day: 1.5 hours per day Agreement: Yes Rehab Potential: Good Time/GCodes Start Time: 13:00 Stop Time: 13:30 Total Time Billed (hr/min): 30 Billed Treatment Time visit, FELICIA 2 (30 minutes) YONI CANSECO May 05, 2017 13:44
[2017-05-05 17:04] VITALS: BP 118/89
[2017-05-05 20:00] VITALS: BP 100/62
[2017-05-05] MEDS: ATORVASTATIN 40 MG (LIPITOR) TABLET PO SCH (21:42)
[2017-05-06] VITALS: BP 108/67
[2017-05-06 03:51] VITALS: BP 99/64
[2017-05-06] MEDS: LEVOTHYROXINE 100 MCG (LEVOTHROID) TAB PO SCH (06:07)
[2017-05-06 08:00] VITALS: BP 105/65
[2017-05-06] MEDS: METOCLOPRAMIDE 10 MG (REGLAN) TAB PO PRN (08:13)
[2017-05-06] MEDS: FUROSEMIDE 20 MG (LASIX) TAB PO SCH (08:13)
[2017-05-06] MEDS: CARVEDILOL 3.125 MG (COREG) TABLET PO SCH ×2 (08:13→20:48)
--- NOTE | 2017-05-06 08:56 | Progress Note (SOAP) ---
Subjective Time Seen by Provider: 08:53 Subjective/Events-last exam CVA on left. Patient continues to improve. Left upper extremity more of a problem Objective Exam Vital Signs Date Time Temp Pulse Resp B/P (MAP) Pulse Ox O2 Delivery O2 Flow Rate FiO2 05/06/17 03:51 98.0 64 16 99/64 98 Room Air 05/06/17 00:00 98.2 62 16 108/67 99 Room Air 05/05/17 20:00 98.4 63 16 100/62 96 Room Air 05/05/17 17:04 98.7 72 16 118/89 100 Room Air 05/05/17 12:47 98.2 61 18 101/56 100 Room Air Capillary Refill : General Appearance: No Apparent Distress, Thin Assessment/Plan Assessment/Plan Assess & Plan/Chief Complaint CVA on left. Acute PA. tobaccoism. Alcoholism. . 05/04/17. CVA on left. Acute PA history. Tobaccoism. Alcoholism. Patient moving his left extremities better.. . 05/05/17 CVA on left. Acute PA history. Tobacco listen. Alcoholism. patient moving left side much better and stronger. Patient improving. Patient complaining of minor headache today on the right side. . 05/06/17. CVA on left. Acute PA history tobaccoism. Alcoholism. patient improving more each day Clinical Quality Measures DVT/VTE Risk/Contraindication: Risk Factor Score Per Nursin RFS Level Per Nursing on Admit: 4+=Very High NELLY JONES DO May 06, 2017 08:56
--- NOTE | 2017-05-06 09:58 | Physical Therapy Daily Note ---
PT Daily Note-Current Subjective Patient in bed pre tx, no complaints of pain. Appearance Patient sitting EOB post tx with nurse call, phone, tray, all needs met. Mental Status Patient Orientation: Normal For Age Transfers Functional [place] Measure 0=Not Assessed/NA 4=Minimal Assistance 1=Total Assistance 5=Supervision or Setup 2=Maximal Assistance 6=Modified [place] 3=Moderate Assistance 7=Complete IndependenceIRFPAI Quality Coding Scale 6 Independent with activity with or without an assistive device 5 Patient requires set up or clean up by helper. Patient completes activity by themselves 4 Supervision or touching assist (CGA). [place] provide cues , steadying assist 3 The helper provides less than half the effort to complete the activity 2 The helper provides more than half the effort to complete the activity 1 Dependent. The helper does all the effort to complete an activity 7 Patient refused to complete or attempt activity 9 The patient did not perform the activity before the current illness or injury 88 Not attempted due to Medical conditions or safety concerns Transfers (B, C, W/C) (FIM): 5 Sit to/from Stand: 5 close supervision on turning Weight Bearing Right Lower Extremity: Right Full Weight Bearing Left Lower Extremity: Left Full Weight Bearing Gait Training Gait (FIM): 5 Distance: 300'x2 Gait Level of Assist: 5 Gait Persons Needed: 1 Gait Assistive Device: Cane Small Base Quad Patient occasionally drags left toes, needs cues for safety and positioning Stair Training Stair Training: Handrails/: 1 handrail Stairs (FIM): 4 #of Steps: 12 Stairs: Pattern: Step to Level of Assist: 4 (CGA) Patient has a tendency to hit toes on step when stepping up with left leg and catching his heel on the step when stepping down with his left leg. Patient is impulsive and tries to go up and down fast and needs cues for safety and foot placement. Exercises Supine Ex: Bridging, Ankle pumps, Heel Slides, Straight leg raise, Hip abd/add Supine Reps: 20 Standing: Heel/toe raises, Step-ups Standing Reps: 20 LAQ left side for 5 min with 3# ankle weight, sidestepping 20'x2, tandem walking 20'x2, backwards walking 20'x2, seated hip abd/add with RTB and pillow x20 each NuStep Minutes: 15 NuStep Workload: 6 Treatments transfers, ambulation, functional strengthening, stair training, balance training Assessment Current Status: Fair Progress improving balance but patient still impulsive and moves quickly, he seems to have better safety awareness but it is still impaired PT Care Home Goals Compliance Associate Goals PT Care Home Goals Time Frame: May 21, 2017 Transfers (B,C,W/C) (FIM): 6 Sit to Lying (QC): 6 Lying-Sitting on Side/Bed(QC): 6 Sit to Stand (QC): 6 Rollin Roll Left to Right (QC): 6 Chair/Fia-sl-Bftlt Xfer(QC): 6 Car Transfer (QC): 6 Does the Patient Walk: Yes Gait (FIM): 6 Gait distance (FIM): 3=150 ft Distance: 250' Walk 10 feet (QC): 6 Walk 10ft-Uneven Surface(QC): 6 Walk 50ft with 2 Turns (QC): 6 Walk 150 ft (QC): 6 Gait Level of Assist: 6 Gait Assistive Device: Cane Single Point, Walker Nav Does the Pt use WC or Scooter?: No Stairs (FIM): 5 # of Steps: 12 1 Step (curb) (QC): 5 4 Steps (QC): 5 12 Steps (QC): 5 Stairs Level Of Assist: 5 Picking up an Object (QC): 5 PT Plan Problem List Problem List: Activity Tolerance, Functional Strength, Safety, Balance, Gait, Transfer Treatment/Plan Treatment Plan: Continue Plan of Care Treatment Plan: Bed Mobility, Education, Functional Activity Av, Functional Strength, Group Therapy, Gait, Safety, Therapeutic Exercise, Transfers Treatment Duration: May 21, 2017 Frequency: At least 5 of 7 days/Wk (IRF) Estimated Hrs Per Day: 1.5 hours per day Patient and/or Family Agrees t: Yes Safety Risks/Education Patient Education: Gait Training, Transfer Techniques, Steps, Correct Positioning, Safety Issues Teaching Recipient: Patient Teaching Methods: Demonstration, Discussion Response to Teaching: Reinforcement Needed Time/GCodes Time In: 900 Time Out: 1000 Total Billed Treatment Time: 60 Total Billed Treatment 1 visit GT 15' NM 15' EX 30' VENUS PALMA PT May 06, 2017 09:58
--- NOTE | 2017-05-06 10:17 | Speech Therapy Daily Note ---
Speech Daily Progress Note Subjective Date Seen by Provider: May 06, 2017 Time Seen by Provider: 08:30 The patient was seated upright in bed upon entrance. The patient greeted the clinician upon entrance and was agreeable to participation in the dysphagia and cognitive treatment session. Objective Sustained Attention/Left Neglect: The patient was provided a ten by ten word search with seventeen words. The patient was able to complete 70% of the word search within 10 minutes. The patient identified words on each quadrant of the task. The patient did not ignore any words that were located on the left side of the task. The patient did not require any prompts for left sided identification of words. The patient independently tracked the physician to the left side of the bed. Diet Tolerance: The patient was assessed consuming breakfast. Breakfast items consisted of sausage, eggs, toast, and orange juice. The patient displayed two throat clears throughout twenty minutes. The throat clears were demonstrated following bites of toast. Per patient, the toast is "dry" which causes increased difficulty and discomfort in his throat (the patient has a known history radiation therapy for pharyngeal CA). No signs/symptoms of aspiration were displayed with any other consistency tested (8 ounces of orange juice, two pieces of toast, eggs, and two sausage patties). Assessment Assessment Current Status: Good Progress Treatment Plan Continue Plan of Care Communication Comprehension: 6 Expression: 5 Social Cognition Social Interaction: 6 Problem Solvin Memory: 4 Speech Short Term Goals Short Term Goals Short Term Goals 1. The patient will complete oral motor exercises to improve left labial range of motion and strength. Progressing. 2. The patient will display 90% accuracy with functional safety problem solving. Progressing/ MET (05/06/2017) 3. The patient will attend to the left side of a structured task without verbal cues and tactile redirection with 80% accuracy. Progressing/MET (05/06/2017) 2. The patient will display 80% accuracy with oral pharyngeal strengthening exercises with mild clinician verbal cueing. Time Frame-STG: Two Weeks Speech Correction Goals Hosiery Operator Goals 1. The patient will demonstrate improved facial strength, as well as, improved attention for increased function and safety with ADL's and communication. 2. The patient will tolerate the least restrictive diet without signs/symptoms of aspiration or laryngeal penetration. Time Frame: Three Weeks Comprehension: 6 Expression: 6 Social Interaction: 6 Problem Solvin Memory: 6 Speech-Plan Treatment Plan Speech Therapy Treatment Plan: Continue Plan of Care Continue skilled speech pathology to target functional safety problem solving, improvement of left neglect, and swallowing safety. Treatment Duration: May 24, 2017 Frequency: Modified Program (IRF) Estimated Hrs Per Day: .5 hour per day Rehab Potential: Good Safety Risks/Education Teaching Recipient: Patient Teaching Methods: Discussion Response to Teaching: Verbalize Understanding Education Topics Provided: Neglect Strategies, Swallowing Strategies Time Speech Therapy Time In: 08:30 Speech Therapy Time Out: 09:00 Total Billed Time: 30 Billed Treatment Time 1, DYST (15 minutes) 1, SLTS (15 minutes) SUNITA DELGADO May 06, 2017 10:17
--- NOTE | 2017-05-06 11:00 | Occupational Ther Daily Note ---
OT Current Status-Daily Note Subjective Pt alert, lying on bed. Pt stated he was 'done in' and didn't think he could do anything. BROWN encouraged pt to participate in therapy. Pt continued to lay on bed and look at ceiling. BROWN continued to encourage pt to work in therapy. Pt agreed. Pt did c/o pain at the back R side of head. Mental Status/Objective Patient Orientation: Person, Place, Time, Situation Functional [place] Measure 0=Not Assessed/NA 4=Minimal Assistance 1=Total Assistance 5=Supervision or Setup 2=Maximal Assistance 6=Modified [place] 3=Moderate Assistance 7=Complete [place] ADL-Treatment Functional [place] Measure 0=Not Assessed/NA 4=Minimal Assistance 1=Total Assistance 5=Supervision or Setup 2=Maximal Assistance 6=Modified [place] 3=Moderate Assistance 7=Complete IndependenceIRFPAI Quality Coding Scale 6 Independent with activity with or without an assistive device 5 Patient requires set up or clean up by helper. Patient completes activity by themselves 4 Supervision or touching assist (CGA). [place] provide cues , steadying assist 3 The helper provides less than half the effort to complete the activity 2 The helper provides more than half the effort to complete the activity 1 Dependent. The helper does all the effort to complete an activity 7 Patient refused to complete or attempt activity 9 The patient did not perform the activity before the current illness or injury 88 Not attempted due to Medical conditions or safety concerns Toileting (FIM): 6 (Using quad cane and grabbar pt was able to complete own toileting.) Toileting Hygiene (QC): 6 Transfers (B, C, W/C) (FIM): 6 (Using quadcane pt able to transfer.) Toilet/Commode Transfer (FIM): 6 (Using quadcane and grabbars pt able to transfer.) Toilet Transfer (QC): 6 Other Treatment Pt able to complete L UE AROM in supine. Pt required verbal cues to activate muscles pertaining to movement then pt able to complete L shldr, elbow, forearm , wrist and finger movements. Pt then attempted to complete fine motor activity by playing chords on guitar. Pt was able to press strings down to neck of guitar. Approximated position of fingers within 1/8" of desired placement. Pt increased frustration with this. Glove and wrist positioning made then pt c/o headache and requested to lay down. Then BROWN discussed home environment and AE needed at home. Pt has tub/shower, no grabbars or tubseat or tub transfer bench. BROWN educated pt on safety while completing daily functional tasks. After therapy, pt lying in bed with call light/phone in reach. All needs met in room. OT Short Term Goals Short Term Goals Time Frame: May 07, 2017 Lower Body Dressing(FIM): 5 Toileting(FIM): 5 Toilet/Commode Transfer(FIM): 5 Additional Short Term Goals: 1-Demonstrate ADL Tasks, 2-Verbalize Understanding , 3-ImproveStrength/Av 1=Demonstrate adherence to instructed precautions during ADL tasks. 2=Patient will verbalize/demonstrate understanding of assistive devices/ modifications for ADL. 3=Patient will improve strength/tolerance for activity to enable patient to perform ADL's. OT Senior Care Goals Senior Care Goals Time Frame: May 21, 2017 Eating (FIM): 6 Eating (QC): 6 Groomin Oral Hygiene (QC): 6 Bathing(FIM): 5 Shower/Bathe Self (QC): 5 Upper Body Dressing(FIM): 6 Upper Body Dressing (QC): 6 Lower Body Dressing(FIM): 6 Lower Body Dressing (QC): 6 On/Off Footwear (QC): 6 Toileting(FIM): 6 Toileting Hygiene (QC): 6 Toilet/Commode Transfer(FIM): 6 Toilet/Commode Transfer (QC): 6 Shower Transfer(FIM): 5 Comprehension(FIM): 6 Expression (FIM): 6 Social Interaction(FIM): 6 Problem Solving(FIM): 6 Memory(FIM): 6 Additional Goals: 1-Demonstrate ADL Tasks, 2-Verbalize Understanding, 3- ImproveStrength/Av 1=Demonstrate adherence to instructed precautions during ADL tasks. 2=Patient will verbalize/demonstrate understanding of assistive devices/ modifications for ADL. 3=Patient will improve strength/tolerance for activity to enable patient to perform ADL's. OT Education/Plan Problem List/Assessment Pt admitted to ARU following acute hospitalization for CVA. Pt demonstrates decreased strength and coordination on left side and decreased ADL functioning, and mobility. Pt to benefit from skilled OT intervention for ADL training, transfers, strengthening, coordination, and home safety education to maximize level of independence and allow safe discharge home. Discharge Recommendations Plan/Recommendations: Continue POC Treatment Plan/Plan of Care Patient would benefit from OT for education, treatment and training to promote independence in ADL's, mobility, safety and/or upper extremity function for ADL' s. Plan of Care: ADL Retraining, Functional Mobility, Group Exercise/Act as Ind, UE Funct Exercise/Act, UE Neuromus Re-Ed/Coord Treatment Duration: May 21, 2017 Frequency: At least 5 of 7 days/Wk (IRF) Estimated Hrs Per Day: 1.5 hours per day Agreement: Yes Rehab Potential: Good Time/GCodes Start Time: 10:00 Stop Time: 11:00 Total Time Billed (hr/min): 60 Billed Treatment Time 1 visit-ADL 1 (15 min) FA 2 (35 min) EX 1 (20 min) YONI CANSECO May 06, 2017 11:00
[2017-05-06] MEDS: PANTOPRAZOLE 20 MG TABLET (PROTONIX) PO SCH (11:49)
--- NOTE | 2017-05-06 12:41 | PM & R (SOAP) Progress Note ---
Subjective Time Seen by Provider: 12:00 Subjective/Events-last exam Patient was seen in his room this noon hour Headaches and hiccups better Patient SBA for transfers Objective Exam Last Set of Vital Signs Vital Signs Date Time Temp Pulse Resp B/P (MAP) Pulse Ox O2 Delivery O2 Flow Rate FiO2 05/06/17 09:00 Room Air 05/06/17 08:00 98.2 62 18 105/65 99 Capillary Refill : I&O Intake and Output 05/07/17 00:00 Intake Total 500 ml Balance 500 ml Intake Oral 500 ml # Voids 4 General: Alert, Oriented X3, Cooperative, No Acute Distress HEENT: Atraumatic, PERRLA, EOMI, Mucous Memb Moist/[place] Neck: Supple, No JVD Lungs: Clear to Auscultation Heart: Regular Rate Abdomen: Normal Bowel Sounds, Soft, No Tenderness, No Masses Extremities: No Edema Neuro: Other (Mild left HP) Assessment/Plan Assessment Rt CVA with Left HP ETOH abuse currently abstaining Tobaccoism currently abstaining Headaches improving at this time Anxiety improved with meds Steroid induced Hyperglycemia Hiccups-improved S/P SC on coreg Plan Continue PT/OT/ST Team Conference held yesterday-See report for full functional update and POC and ELOS CT films to be compared from outside facility with ours when available Follow-up re RX for hiccups.-Pharmacy recommended regaln and so ordered but patient reports that TUMS more helpful and hiccups are not continuous.-will monitor-improved DESMOND FAM MD May 06, 2017 12:41
--- NOTE | 2017-05-06 14:58 | Therapy Group Daily Note ---
Therapy Daily Group Note Patient Education Topic Fall Prevention, Home Safety, Exercises Exercises LE Seated Exercise, UE Exercise Other/Notes Pt walked with small base quad cane and CGA to gym for group. Pt participated in group introductions by sharing name, place he grew up and lives now, and the worst fall experienced. Pt able to return demonstration of seated UE/LE exercises using self ROM techniques and participated in discussion about what ARU is and does and the expectations of pts in ARU. Pt participated in brain teasers and discussion on home safety in anticipation of going home. Pt walked back to room with small base quad cane and SBA. Start Time: 13:00 Stop Time: 14:00 Total Billed Treatment Time: 60 Total Billed Treatment visit, GRP (60 minutes) YONI CANSECO May 06, 2017 14:58
[2017-05-06 15:43] VITALS: BP 102/66
[2017-05-06 19:56] VITALS: BP 120/76
[2017-05-06] MEDS: ATORVASTATIN 40 MG (LIPITOR) TABLET PO SCH (20:48)
[2017-05-06] MEDS: CYCLOBENZAPRINE 10 MG (FLEXERIL) TAB PO PRN (20:52)
[2017-05-06] MEDS: HYDROcodone/APAP 5 MG/325 MG (LORTAB) TAB PO PRN ×2 (20:52)
[2017-05-06 23:00] VITALS: BP 102/65
[2017-05-07 04:00] VITALS: BP 119/79
[2017-05-07] MEDS: PANTOPRAZOLE 20 MG TABLET (PROTONIX) PO SCH (06:04)
[2017-05-07] MEDS: LEVOTHYROXINE 100 MCG (LEVOTHROID) TAB PO SCH (06:04)
--- NOTE | 2017-05-07 07:55 | Progress Note (SOAP) ---
Subjective Time Seen by Provider: 07:54 Subjective/Events-last exam CVA on left. Patient has improved much. Patient wanting to go home for the weekend. Objective Exam Vital Signs Date Time Temp Pulse Resp B/P (MAP) Pulse Ox O2 Delivery O2 Flow Rate FiO2 05/07/17 04:00 97.4 57 16 119/79 97 Room Air 05/06/17 23:00 96.8 53 14 102/65 97 Room Air 05/06/17 19:56 97.6 71 16 120/76 97 Room Air 05/06/17 15:43 98.1 73 14 102/66 95 Room Air 05/06/17 09:00 Room Air 05/06/17 08:00 98.2 62 18 105/65 99 Room Air Capillary Refill : General Appearance: No Apparent Distress, Thin HEENT: Normal ENT Inspection Neck: Full Range of Motion, Normal Inspection Respiratory: No Accessory Muscle Use, No Respiratory Distress Cardiovascular: Regular Rate, Rhythm, No Murmur Assessment/Plan Assessment/Plan Assess & Plan/Chief Complaint CVA on left. Acute LA. tobaccoism. Alcoholism. . 05/04/17. CVA on left. Acute LA history. Tobaccoism. Alcoholism. Patient moving his left extremities better.. . 05/05/17 CVA on left. Acute LA history. Tobacco listen. Alcoholism. patient moving left side much better and stronger. Patient improving. Patient complaining of minor headache today on the right side. . 05/06/17. CVA on left. Acute LA history tobaccoism. Alcoholism. patient improving more each day Clinical Quality Measures DVT/VTE Risk/Contraindication: Risk Factor Score Per Nursin RFS Level Per Nursing on Admit: 4+=Very High NELLY JONES DO May 07, 2017 07:55
--- NOTE | 2017-05-07 07:57 | Progress Note (SOAP) ---
Subjective Time Seen by Provider: 07:55 Subjective/Events-last exam CVA on left. Patient improving. Getting better. Left side improving Patient wants to go home this weekend Objective Exam Vital Signs Date Time Temp Pulse Resp B/P (MAP) Pulse Ox O2 Delivery O2 Flow Rate FiO2 05/07/17 04:00 97.4 57 16 119/79 97 Room Air 05/06/17 23:00 96.8 53 14 102/65 97 Room Air 05/06/17 19:56 97.6 71 16 120/76 97 Room Air 05/06/17 15:43 98.1 73 14 102/66 95 Room Air 05/06/17 09:00 Room Air 05/06/17 08:00 98.2 62 18 105/65 99 Room Air Capillary Refill : General Appearance: No Apparent Distress, Thin HEENT: Normal ENT Inspection Neck: Normal Inspection Respiratory: No Accessory Muscle Use, No Respiratory Distress Cardiovascular: Regular Rate, Rhythm, No Murmur Assessment/Plan Assessment/Plan Assess & Plan/Chief Complaint CVA on left. Acute ME. tobaccoism. Alcoholism. . 05/04/17. CVA on left. Acute ME history. Tobaccoism. Alcoholism. Patient moving his left extremities better.. . 05/05/17 CVA on left. Acute ME history. Tobacco listen. Alcoholism. patient moving left side much better and stronger. Patient improving. Patient complaining of minor headache today on the right side. . 05/06/17. CVA on left. Acute ME history tobaccoism. Alcoholism. patient improving more each day. . 05/07 17. cVA on left acute ME. Tobaccoism. Alcoholism. Patient improving on left side Clinical Quality Measures DVT/VTE Risk/Contraindication: Risk Factor Score Per Nursin RFS Level Per Nursing on Admit: 4+=Very High NELLY JONES DO May 07, 2017 07:57
--- NOTE | 2017-05-07 09:16 | PM & R (SOAP) Progress Note ---
Subjective Time Seen by Provider: 08:20 Subjective/Events-last exam Patient was seen in his room this AM Patient anxious for discharge wants overnight pass if he is to stay til next week Explained that we can only do day pass that wont interfere with therapies.Will f/u with SW re patient wanting to be possibly discharged earlier then planned.Patient SBA for transfers Objective Exam Last Set of Vital Signs Vital Signs Date Time Temp Pulse Resp B/P (MAP) Pulse Ox O2 Delivery O2 Flow Rate FiO2 05/07/17 04:00 97.4 57 16 119/79 97 Room Air Capillary Refill : I&O Intake and Output 05/08/17 00:00 Intake Total 800 ml Balance 800 ml Intake Oral 800 ml # Voids 5 General: Alert, Oriented X3, Cooperative, No Acute Distress HEENT: Atraumatic, PERRLA, EOMI, Mucous Memb Moist/[place] Neck: Supple, No JVD Lungs: Clear to Auscultation Heart: Regular Rate Abdomen: Normal Bowel Sounds, Soft, No Tenderness, No Masses Extremities: No Edema Neuro: Other (Mild left HP) Assessment/Plan Assessment Rt CVA with Left HP ETOH abuse currently abstaining Tobaccoism currently abstaining Headaches improving at this time Anxiety improved with meds Steroid induced Hyperglycemia Hiccups-improved S/P [place] on coreg Plan Continue PT/OT/ST Team Conference held -See report for full functional update and POC and ELOS CT films to be compared from outside facility with ours when available Follow-up re RX for hiccups.-Pharmacy recommended regaln and so ordered but patient reports that TUMS more helpful and hiccups are not continuous.-will monitor-improved F/U with SW re patient wanting possible early discharge DESMOND FAM MD May 07, 2017 09:16
[2017-05-07] MEDS: CARVEDILOL 3.125 MG (COREG) TABLET PO SCH (09:17)
[2017-05-07] MEDS: FUROSEMIDE 20 MG (LASIX) TAB PO SCH (09:17)
[2017-05-07 09:29] VITALS: BP 124/94
--- NOTE | 2017-05-07 10:21 | Speech Therapy Daily Note ---
Speech Daily Progress Note Subjective Date Seen by Provider: May 07, 2017 Time Seen by Provider: 08:30 The patient was seated upright in bed, dressed. Per patient, he dressed himself. The patient stated he is having the most difficulty tying his shoestrings. The patient was agreeable to participation in dysphagia therapy. Objective Base of Tongue, Pharyngeal, Laryngeal Strengthening Exercises: The clinician initiated dysphagia strengthening exercises on this date. The exercises were discussed, demonstrated, and completed. The patient completes the exercises with high accuracy and limited cueing. Five repetitions of each exercise were completed. The patient denied questions or concerns regarding the recommended exercises. Assessment Assessment Current Status: Excellent Progress Treatment Plan Continue Plan of Care Communication Comprehension: 5 Expression: 5 Social Cognition Social Interaction: 6 Problem Solvin Memory: 4 Speech Short Term Goals Short Term Goals Short Term Goals 1. The patient will complete oral motor exercises to improve left labial range of motion and strength. Progressing. 2. The patient will display 90% accuracy with functional safety problem solving. Progressing/ MET (05/06/2017) 3. The patient will attend to the left side of a structured task without verbal cues and tactile redirection with 80% accuracy. Progressing/MET (05/06/2017) 2. The patient will display 80% accuracy with oral pharyngeal strengthening exercises with mild clinician verbal cueing. Time Frame-STG: Two Weeks Speech Mincemeat Maker Goals Mincemeat Maker Goals 1. The patient will demonstrate improved facial strength, as well as, improved attention for increased function and safety with ADL's and communication. 2. The patient will tolerate the least restrictive diet without signs/symptoms of aspiration or laryngeal penetration. Time Frame: Three Weeks Comprehension: 6 Expression: 6 Social Interaction: 6 Problem Solvin Memory: 6 Speech-Plan Treatment Plan Speech Therapy Treatment Plan: Continue Plan of Care Continue skilled speech pathology to target functional swallowing strategies and safety. Treatment Duration: May 24, 2017 Frequency: Modified Program (IRF) Estimated Hrs Per Day: .5 hour per day Rehab Potential: Good Safety Risks/Education Teaching Recipient: Patient Teaching Methods: Demonstration, Handout, Discussion Response to Teaching: Verbalize Understanding Education Topics Provided: Dysphagia Exercises Time Speech Therapy Time In: 08:30 Speech Therapy Time Out: 09:00 Total Billed Time: 30 Billed Treatment Time 1 KOMAL SUNITA DELGADO May 07, 2017 10:20
--- NOTE | 2017-05-07 11:09 | Physical Therapy Daily Note ---
PT Daily Note-Current Subjective Patient in bed pre tx, agrees to PT, states he may be leaving today, so patient will be [facility]'ed. No complaints of pain. Appearance Patient sitting EOB post tx with nurse call, phone, tray, all needs met. Nurse notified that patient can be independent on the floor as long as he uses his cane. Mental Status Patient Orientation: Normal For Age Transfers Functional [place] Measure 0=Not Assessed/NA 4=Minimal Assistance 1=Total Assistance 5=Supervision or Setup 2=Maximal Assistance 6=Modified [place] 3=Moderate Assistance 7=Complete IndependenceIRFPAI Quality Coding Scale 6 Independent with activity with or without an assistive device 5 Patient requires set up or clean up by helper. Patient completes activity by themselves 4 Supervision or touching assist (CGA). [place] provide cues , steadying assist 3 The helper provides less than half the effort to complete the activity 2 The helper provides more than half the effort to complete the activity 1 Dependent. The helper does all the effort to complete an activity 7 Patient refused to complete or attempt activity 9 The patient did not perform the activity before the current illness or injury 88 Not attempted due to Medical conditions or safety concerns Transfers (B, C, W/C) (FIM): 6 Scootin Rollin Roll Left to Right (QC): 6 Supine to/from Sit: 6 Sit to/from Stand: 6 Sit to Lying (QC): 6 Sit to Stand (QC): 6 Chair/Yzz-nu-Cvahj Xfer(QC): 6 Car Transfer (QC): 6 Patient performs bed mobility and transfers with mod I. Simulated car transfer with mod I. Weight Bearing Right Lower Extremity: Right Full Weight Bearing Left Lower Extremity: Left Full Weight Bearing Gait Training Gait (FIM): 6 Distance: 800', 400' Walk 10 feet (QC): 6 Walk 50 ft with 2 Turns(QC): 6 Walk 150 ft (QC): 6 Walking 10ft/uneven surface-QC: 6 Gait Assistive Device: Cane Single Point Patient can ambulate 800' with a single point cane with mod I, including 50' with at least 2 turns of 90 degrees and 10' over an uneven surface. Patient ambulated outside over community surfaces without LOB. Wheelchair Training Does the Pt Use a Wheelchair?: No Stair Training Stair Training: Handrails/: 1 handrail Stairs (FIM): 5 #of Steps: 12 1 Step (curb) (QC): 4 4 Steps (QC): 4 12 Steps (QC): 4 Stairs: Pattern: Step to Level of Assist: 5 Patient can go up and down 12 steps using 1 handrail with SBA. He does need cues to slow down and for step placement. His left foot tends to catch on the step. Balance Picking up an Object (QC): 6 Exercises NuStep Minutes: 15 NuStep Workload: 7 Neuromuscular [place] score 51/56 Assessment Current Status: Fair Progress Improving balance, endurance, and ambulation. Made patient independent on the floor and nursing notified. PT Quality Lab Technician Goals Quality Lab Technician Goals PT Quality Lab Technician Goals Time Frame: May 21, 2017 Transfers (B,C,W/C) (FIM): 6 (mt) Sit to Lying (QC): 6 (met) Lying-Sitting on Side/Bed(QC): 6 (met) Sit to Stand (QC): 6 (mt) Rollin (met) Roll Left to Right (QC): 6 (met) Chair/Kyz-pt-[place]ax Xfer(QC): 6 Car Transfer (QC): 6 (met) Does the Patient Walk: Yes Gait (FIM): 6 (met) Gait distance (FIM): 3=150 ft Distance: 250' Walk 10 feet (QC): 6 (met) Walk 10ft-Uneven Surface(QC): 6 (met) Walk 50ft with 2 Turns (QC): 6 (met) Walk 150 ft (QC): 6 (met) Gait Level of Assist: 6 (met) Gait Assistive Device: Cane Single Point, Walker Nav Does the Pt use WC or Scooter?: No Stairs (FIM): 5 (met) # of Steps: 12 (met) 1 Step (curb) (QC): 5 (met) 4 Steps (QC): 5 (met) 12 Steps (QC): 5 (met) Stairs Level Of Assist: 5 (met) Picking up an Object (QC): 5 (met) PT Plan Problem List Problem List: Activity Tolerance, Functional Strength, Safety, Balance, Gait, Transfer, Bed Mobility Treatment/Plan Treatment Plan: Continue Plan of Care Treatment Plan: Bed Mobility, Education, Functional Activity Av, Functional Strength, Group Therapy, Gait, Safety, Therapeutic Exercise, Transfers Treatment Duration: May 21, 2017 Frequency: At least 5 of 7 days/Wk (IRF) Estimated Hrs Per Day: 1.5 hours per day Patient and/or Family Agrees t: Yes Safety Risks/Education Patient Education: Gait Training, Transfer Techniques, Steps, Correct Positioning, Safety Issues Teaching Recipient: Patient Teaching Methods: Demonstration, Discussion Response to Teaching: Reinforcement Needed Time/GCodes Time In: 1000 Time Out: 1101 Total Billed Treatment Time: 61 Total Billed Treatment 1 visit GT 31' EX 15' NM 15' VENUS PALMA PT May 07, 2017 11:09
--- NOTE | 2017-05-07 11:31 | Occupational Ther Daily Note ---
OT Current Status-Daily Note Subjective Pt sitting EOB at beginning of tx. Agreeable to therapy. No mention of pain. Appearance Alert, cooperative. Mental Status/Objective Functional [place] Measure 0=Not Assessed/NA 4=Minimal Assistance 1=Total Assistance 5=Supervision or Setup 2=Maximal Assistance 6=Modified [place] 3=Moderate Assistance 7=Complete [place] ADL-Treatment Pt walked to bathroom with small base quad cane and CGA for safety. Functional [place] Measure 0=Not Assessed/NA 4=Minimal Assistance 1=Total Assistance 5=Supervision or Setup 2=Maximal Assistance 6=Modified [place] 3=Moderate Assistance 7=Complete IndependenceIRFPAI Quality Coding Scale 6 Independent with activity with or without an assistive device 5 Patient requires set up or clean up by helper. Patient completes activity by themselves 4 Supervision or touching assist (CGA). [place] provide cues , steadying assist 3 The helper provides less than half the effort to complete the activity 2 The helper provides more than half the effort to complete the activity 1 Dependent. The helper does all the effort to complete an activity 7 Patient refused to complete or attempt activity 9 The patient did not perform the activity before the current illness or injury 88 Not attempted due to Medical conditions or safety concerns Eating (FIM): 5 (Pt reports some difficulty requiring extra time to open packages/containers and cut foods. Setup. Provided dycem to place under bowl/ plate at meals. ) Eating (QC): 5 Grooming (FIM): 5 (Pt able to stand at sink to groom with some supervision although no LOB was observed. Washed face and hands in shower) Oral Hygiene (QC): 4 Bathing (FIM): 5 (Pt able to bathe 10 parts with some supervision although no LOB was observed. Shower bench, hand held shower, grab bars, small base quad cane. Pt able to turn water off/on and retrieve towels without assist.) Shower/Bathe Self (QC): 4 (supervision) Upper Body (FIM): 5 (Pt able to don pullover tshirt while seated with supervision for safety.) Upper Body Dressing (QC): 4 Lower Body Dressing (FIM): 5 (Pt able to don underwear and pants with some supervision while standing to manage clothing.) Lower Body Dressing (QC): 4 On/Off Footwear (QC): 4 (Able to don/doff shoes and socks with supervision. Elastic shoe laces put in shoes and pt educ on use) Toileting (FIM): 5 (Pt reported he has been taking himself to bathroom. Pt can manage clothing and hygiene but has been asked to use call light so he has supervision. Nursing notified. Tall toilet, grab bar, cane) Toileting Hygiene (QC): 4 Toilet/Commode Transfer (FIM): 5 (Pt able to transfer off and on toilet with supervision. Grab bars, tall toilet, small base quad cane.) Toilet Transfer (QC): 4 Shower Transfer(FIM): 5 (Pt able to transfer on and off shower bench with supervision. Grab bars, shower bench, small base quad cane.) Pt often impulsive and moves fast. When moving slower, there is less concern for safety but since pt needs verbal cues to slow down, pt still needs supervision to be safe. Other Treatment Pt walked to gym with small base quad cane and SBA. Pt used arm bike for coordination for 6 minutes, keeping L hand on handle 75% of time (improved from 50%). Pt able to keep L hand on handle for 2 minutes continuously. Pt practiced self ROM activities with mirror to aid visual assist and used melchor bags to practice grasp and release of hand and pronation/supination to improve coordination and ADLs. Pt walked back to room with small base quad cane and SBA at a slower and safer pace. Discussed possible needs at home when discharged, including getting a shower chair and installing grab bars. Pt at EOB, with all needs met at end of tx. Education OT Patient Education: Modified ADL techniques, Progress toward Goal/Update tx plan, Purpose of tx/functional activities, Safety issues Teaching Recipient: Patient Teaching Methods: Demonstration, Discussion Response to Teaching: Verbalize Understanding, Return Demonstration, Reinforcement Needed OT Short Term Goals Short Term Goals Time Frame: May 07, 2017 Lower Body Dressing(FIM): 5 Toileting(FIM): 5 Toilet/Commode Transfer(FIM): 5 Additional Short Term Goals: 1-Demonstrate ADL Tasks, 2-Verbalize Understanding , 3-ImproveStrength/Av 1=Demonstrate adherence to instructed precautions during ADL tasks. 2=Patient will verbalize/demonstrate understanding of assistive devices/ modifications for ADL. 3=Patient will improve strength/tolerance for activity to enable patient to perform ADL's. OT Retail Chain Store Area Supervisor Goals Retail Chain Store Area Supervisor Goals Time Frame: May 21, 2017 Eating (FIM): 6 Eating (QC): 6 Groomin Oral Hygiene (QC): 6 Bathing(FIM): 5 Shower/Bathe Self (QC): 5 Upper Body Dressing(FIM): 6 Upper Body Dressing (QC): 6 Lower Body Dressing(FIM): 6 Lower Body Dressing (QC): 6 On/Off Footwear (QC): 6 Toileting(FIM): 6 Toileting Hygiene (QC): 6 Toilet/Commode Transfer(FIM): 6 Toilet/Commode Transfer (QC): 6 Shower Transfer(FIM): 5 Comprehension(FIM): 6 Expression (FIM): 6 Social Interaction(FIM): 6 Problem Solving(FIM): 6 Memory(FIM): 6 Additional Goals: 1-Demonstrate ADL Tasks, 2-Verbalize Understanding, 3- ImproveStrength/Av 1=Demonstrate adherence to instructed precautions during ADL tasks. 2=Patient will verbalize/demonstrate understanding of assistive devices/ modifications for ADL. 3=Patient will improve strength/tolerance for activity to enable patient to perform ADL's. OT Education/Plan Problem List/Assessment Pt admitted to ARU following acute hospitalization for CVA. Pt demonstrates decreased strength and coordination on left side and decreased ADL functioning, and mobility. Pt to benefit from skilled OT intervention for ADL training, transfers, strengthening, coordination, and home safety education to maximize level of independence and allow safe discharge home. Discharge Recommendations Plan/Recommendations: Continue POC Treatment Plan/Plan of Care Patient would benefit from OT for education, treatment and training to promote independence in ADL's, mobility, safety and/or upper extremity function for ADL' s. Plan of Care: ADL Retraining, Functional Mobility, Group Exercise/Act as Ind, UE Funct Exercise/Act, UE Neuromus Re-Ed/Coord Treatment Duration: May 21, 2017 Frequency: At least 5 of 7 days/Wk (IRF) Estimated Hrs Per Day: 1.5 hours per day Agreement: Yes Rehab Potential: Good Time/GCodes Start Time: 09:00 Stop Time: 10:00 Total Time Billed (hr/min): 60 Billed Treatment Time visit, ADL 30 minutes, neuromotor 30 minutes. STEPHIE DUMAS OT May 07, 2017 11:31
--- NOTE | 2017-05-07 14:27 | Therapy Group Daily Note ---
Therapy Daily Group Note Exercises Balance, Stretching Other/Notes Pt. attended group PT OT session. Pt. walked mod I to/from. Introductions and socialization activity with table games i.e. cars, dominoes, and puzzle assembly. Activities included dynamic sitting, core strength and endurance, memorization, sequencing,visual motor and fine motor. this pt. very social, shared and participated well in all activities. In room after with mathew at hand and up ad teto. Start Time: 13:00 Stop Time: 14:00 Total Billed Treatment Time: 60 Total Billed Treatment 1,GRP JUAN JAMES COMMISSARY CLERK May 07, 2017 14:27
[2017-05-07] MEDS ORDERED: FURO20TA4 PO (16:39)
[2017-05-07] MEDS ORDERED: PANT20TA3 PO (16:39)
[2017-05-07] MEDS ORDERED: CARV3.122 PO (16:39)
[2017-05-07] MEDS ORDERED: CYCL10TA9 PC (16:39)
[2017-05-07] MEDS ORDERED: LEVO100T7 PO (16:39)
[2017-05-07] MEDS ORDERED: ATOR40TA70 PO (16:39)
--- NOTE | 2017-05-08 07:24 | Therapy Team Discharge Summary ---
Therapy Discharge Summary Discharge Recommendations Date of Discharge May 07, 2017 at 17:20 Therapy D/C Recommendations: Home w/ Family Support, Physical Therapy Outpatient Physical Therapy Patient came to rehab following a CVA. Upon admission patient performed bed mobility with SBA and transfers with CGA/Cain, ambulated 25' with a hemiwalker with CGA/Cain, and went up and down 2 steps using 1 handrail with CGA/Cain. Patient has been performing bed mobility and transfer training, balance and endurance training, functional strengthening, stair training, gait training, and education. Patient has made good progress and has met all of his manager long term care goals. Now, patient performs bed mobility with mod I, transfers with mod I, ambulates 800' with a single point cane with mod I, including 50' with at least 2 turns of 90 degrees and 10' over an uneven surface, performs a car transfer with mod I, can go up and down 12 steps using 1 handrail with SBA, and can pick up driver an object from the floor with mod I. Patient was discharged from this facility yesterday and will be discharged from PT at this time. Occupational Therapy Decreased Safety Aware, Decreased UE Strength, Dependent Transfers, Impaired Coordination, Impaired Funct Balance, Impaired I ADL's, Impaired Self-Care Skills PT Stretcher Drier Operator Goals Residential Goals PT Stretcher Drier Operator Goals Time Frame: May 21, 2017 Transfers (B,C,W/C) (FIM): 6 (mt) Roll Left to Right (QC): 6 (met) Sit to Lying (QC): 6 (met) Lying-Sitting on Side/Bed(QC): 6 (met) Sit to Stand (QC): 6 (mt) Chair/Lfm-lo-Kytvx Xfer(QC): 6 Car Transfer (QC): 6 (met) Does the Patient Walk: Yes Gait (FIM): 6 (met) Gait distance (FIM): 3=150 ft Distance: 250' Walk 10 feet (QC): 6 (met) Walk 10ft-Uneven Surface(QC): 6 (met) Walk 50ft with 2 Turns (QC): 6 (met) Walk 150 ft (QC): 6 (met) Gait Level of Assist: 6 (met) Gait Assistive Device: Cane Single Point, Walker Nav Does the Pt use WC or Scooter?: No Stairs (FIM): 5 (met) # of Steps: 12 (met) 1 Step (curb) (QC): 5 (met) 4 Steps (QC): 5 (met) 12 Steps (QC): 5 (met) Stairs Level Of Assist: 5 (met) Picking up an Object (QC): 5 (met) OT Stretcher Drier Operator Goals Stretcher Drier Operator Goals Time Frame: May 21, 2017 Eating (FIM): 6 Eating (QC): 6 Oral Hygiene (QC): 6 Grooming(FIM): 6 Bathing(FIM): 5 Shower/Bathe Self (QC): 5 Upper Body Dressing(FIM): 6 Upper Body Dressing (QC): 6 Lower Body Dressing(FIM): 6 Lower Body Dressing (QC): 6 On/Off Footwear (QC): 6 Toileting(FIM): 6 Toileting Hygiene (QC): 6 Toilet/Commode Transfer(FIM): 6 Toilet/Commode Transfer (QC): 6 Shower Transfer(FIM): 5 Comprehension(FIM): 6 Expression (FIM): 6 Social Interaction(FIM): 6 Problem Solving(FIM): 6 Memory(FIM): 6 Additional Goals: 1-Demonstrate ADL Tasks, 2-Verbalize Understanding, 3- ImproveStrength/Av 1=Demonstrate adherence to instructed precautions during ADL tasks. 2=Patient will verbalize/demonstrate understanding of assistive devices/ modifications for ADL. 3=Patient will improve strength/tolerance for activity to enable patient to perform ADL's. Speech Residential Goals Residential Goals 1. The patient will demonstrate improved facial strength, as well as, improved attention for increased function and safety with ADL's and communication. 2. The patient will tolerate the least restrictive diet without signs/symptoms of aspiration or laryngeal penetration. Time Frame: Three Weeks Comprehension: 6 Expression: 6 Social Interaction: 6 Problem Solvin Memory: 6 VENUS PALMA PT May 08, 2017 07:24
--- NOTE | 2017-05-10 08:56 | Therapy Team Discharge Summary ---
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 On admission he needed setup for eating, supervision/ setup for grooming, min assist to CGA for bathing, dressing, toileting and toilet transfers. By discharge he still needed setup for eating and supervision for grooming, bathing, dressing and toileting. He reported taking himself to the bathroom but was impulsive and moved quickly. When he slowed down he was safer during ADLs. He had decreased functional use L UE but improved in both coordination and use of UE during ADLs. Equipment used included grab bars, hand held shower, shower bench, quad cane, elastic shoe laces. He would benefit from continued OT. See tx plan for goals met - pt left prior to end of tx plan. DC OT Decreased Safety Aware, Decreased UE Strength, Dependent Transfers, Impaired Coordination, Impaired Funct Balance, Impaired I ADL's, Impaired Self-Care Skills PT Senior Living Goals Senior Living Goals PT Senior Living Goals Time Frame: May 21, 2017 Transfers (B,C,W/C) (FIM): 6 (mt) Roll Left to Right (QC): 6 (met) Sit to Lying (QC): 6 (met) Lying-Sitting on Side/Bed(QC): 6 (met) Sit to Stand (QC): 6 (mt) Chair/Oig-vs-Xopwj Xfer(QC): 6 Car Transfer (QC): 6 (met) Does the Patient Walk: Yes Gait (FIM): 6 (met) Gait distance (FIM): 3=150 ft Distance: 250' Walk 10 feet (QC): 6 (met) Walk 10ft-Uneven Surface(QC): 6 (met) Walk 50ft with 2 Turns (QC): 6 (met) Walk 150 ft (QC): 6 (met) Gait Level of Assist: 6 (met) Gait Assistive Device: Cane Single Point, Walker Nav Does the Pt use WC or Scooter?: No Stairs (FIM): 5 (met) # of Steps: 12 (met) 1 Step (curb) (QC): 5 (met) 4 Steps (QC): 5 (met) 12 Steps (QC): 5 (met) Stairs Level Of Assist: 5 (met) Picking up an Object (QC): 5 (met) OT Senior Living Goals Senior Living Goals Time Frame: May 21, 2017 Eating (FIM): 6 (Not met 05-07-17) Eating (QC): 6 (Not met 05-07-17) Oral Hygiene (QC): 6 (Not met 05-07-17) Grooming(FIM): 6 (Not met 05-07-17) Bathing(FIM): 5 (met 05-07-17) Shower/Bathe Self (QC): 5 (Not met 05-07-17) Upper Body Dressing(FIM): 6 (Not met 05-07-17) Upper Body Dressing (QC): 6 (Not met 05-07-17) Lower Body Dressing(FIM): 6 (Not met 05-07-17) Lower Body Dressing (QC): 6 (Not met 05-07-17) On/Off Footwear (QC): 6 (Not met 05-07-17) Toileting(FIM): 6 (Not met 05-07-17) Toileting Hygiene (QC): 6 (Not met 05-07-17) Toilet/Commode Transfer(FIM): 6 (Not met 05-07-17) Toilet/Commode Transfer (QC): 6 (Not met 05-07-17) Shower Transfer(FIM): 5 (met 05-07-17) Comprehension(FIM): 6 Expression (FIM): 6 Social Interaction(FIM): 6 Problem Solving(FIM): 6 Memory(FIM): 6 Additional Goals: 1-Demonstrate ADL Tasks, 2-Verbalize Understanding, 3- ImproveStrength/Av 1=Demonstrate adherence to instructed precautions during ADL tasks. 2=Patient will verbalize/demonstrate understanding of assistive devices/ modifications for ADL. 3=Patient will improve strength/tolerance for activity to enable patient to perform ADL's. Speech Prosthetic Aide Goals Senior Living Goals 1. The patient will demonstrate improved facial strength, as well as, improved attention for increased function and safety with ADL's and communication. 2. The patient will tolerate the least restrictive diet without signs/symptoms of aspiration or laryngeal penetration. Time Frame: Three Weeks Comprehension: 6 Expression: 6 Social Interaction: 6 Problem Solvin Memory: 6 STEPHIE DUMAS OT May 10, 2017 08:56
--- NOTE | 2017-05-11 15:17 | Therapy Team Discharge Summary ---
Therapy Discharge Summary Discharge Recommendations Date of Discharge May 07, 2017 at 17:20 Therapy D/C Recommendations: Home w/ Family Support, Physical Therapy Outpatient Occupational Therapy Decreased Safety Aware, Decreased UE Strength, Dependent Transfers, Impaired Coordination, Impaired Funct Balance, Impaired I ADL's, Impaired Self-Care Skills Speech-Language Pathology The patient was recently admitted to [facility] following a stroke. Upon admission, the patient displayed mild oropharyngeal dysphagia, as well as, mild cognitive deficits, most notably attention and poor problem solving. Skilled speech pathology focused on sustained attention, safety problem solving, and oropharyngeal strengthening exercises. The patient met the expression, comprehension, and problem solving goals placed by this clinician. At this time, home speech pathology services are not warranted. PT Soaking Tank Worker Goals Assisted Goals PT Assisted Goals Time Frame: May 21, 2017 Transfers (B,C,W/C) (FIM): 6 (mt) Roll Left to Right (QC): 6 (met) Sit to Lying (QC): 6 (met) Lying-Sitting on Side/Bed(QC): 6 (met) Sit to Stand (QC): 6 (mt) Chair/[id number] Xfer(QC): 6 Car Transfer (QC): 6 (met) Does the Patient Walk: Yes Gait (FIM): 6 (met) Gait distance (FIM): 3=150 ft Distance: 250' Walk 10 feet (QC): 6 (met) Walk 10ft-Uneven Surface(QC): 6 (met) Walk 50ft with 2 Turns (QC): 6 (met) Walk 150 ft (QC): 6 (met) Gait Level of Assist: 6 (met) Gait Assistive Device: Cane Single Point, Walker Nav Does the Pt use WC or Scooter?: No Stairs (FIM): 5 (met) # of Steps: 12 (met) 1 Step (curb) (QC): 5 (met) 4 Steps (QC): 5 (met) 12 Steps (QC): 5 (met) Stairs Level Of Assist: 5 (met) Picking up an Object (QC): 5 (met) OT Soaking Tank Worker Goals Soaking Tank Worker Goals Time Frame: May 21, 2017 Eating (FIM): 6 (Not met 05-07-17) Eating (QC): 6 (Not met 05-07-17) Oral Hygiene (QC): 6 (Not met 05-07-17) Grooming(FIM): 6 (Not met 05-07-17) Bathing(FIM): 5 (met 05-07-17) Shower/Bathe Self (QC): 5 (Not met 05-07-17) Upper Body Dressing(FIM): 6 (Not met 05-07-17) Upper Body Dressing (QC): 6 (Not met 05-07-17) Lower Body Dressing(FIM): 6 (Not met 05-07-17) Lower Body Dressing (QC): 6 (Not met 05-07-17) On/Off Footwear (QC): 6 (Not met 05-07-17) Toileting(FIM): 6 (Not met 05-07-17) Toileting Hygiene (QC): 6 (Not met 05-07-17) Toilet/Commode Transfer(FIM): 6 (Not met 05-07-17) Toilet/Commode Transfer (QC): 6 (Not met 05-07-17) Shower Transfer(FIM): 5 (met 05-07-17) Comprehension(FIM): 6 Expression (FIM): 6 Social Interaction(FIM): 6 Problem Solving(FIM): 6 Memory(FIM): 6 Additional Goals: 1-Demonstrate ADL Tasks, 2-Verbalize Understanding, 3- ImproveStrength/Av 1=Demonstrate adherence to instructed precautions during ADL tasks. 2=Patient will verbalize/demonstrate understanding of assistive devices/ modifications for ADL. 3=Patient will improve strength/tolerance for activity to enable patient to perform ADL's. Speech Soaking Tank Worker Goals Assisted Goals 1. The patient will demonstrate improved facial strength, as well as, improved attention for increased function and safety with ADL's and communication. 2. The patient will tolerate the least restrictive diet without signs/symptoms of aspiration or laryngeal penetration. Time Frame: Three Weeks Comprehension: 6 (MET) Expression: 6 (MET) Social Interaction: 6 (MET) Problem Solvin (MET) Memory: 6 (MET) SUNITA DELGADO May 11, 2017 15:17
== END 2017-05-07 17:20 | disposition home or self-care (01) | DRG 56 ==
PROVIDERS: ADMIT Physical Medicine & Rehabilitation; ATTEND Physical Medicine & Rehabilitation
DX: I69.354 Hemiplegia and hemiparesis following cerebral infarction affecting left non-dominant side (principal); I69.322 Dysarthria following cerebral infarction; I21.9 Acute myocardial infarction, unspecified; R32 Unspecified urinary incontinence; E03.9 Hypothyroidism, unspecified; F10.20 Alcohol dependence, uncomplicated; F41.9 Anxiety disorder, unspecified; R73.9 Hyperglycemia, unspecified; R06.6 Hiccough; F17.210 Nicotine dependence, cigarettes, uncomplicated; T38.0X5A Adverse effect of glucocorticoids and synthetic analogues, initial encounter
CPT/HCPCS: 36415; 70450; 80048; 80053; 85025